=== PATIENT | male | born 1985 | race Caucasian/White ===

== ENCOUNTER 2023-02-08 16:14 | Inpatient (IN) | payer MEDICARE, OTHER ==
[~2023-02-08] VITALS: Ht 175.3 cm; Wt 75.3 kg
[2023-02-08 16:48] LABS: Basophils # (auto) 0.1 10 ^3/uL (0-0.2); Eosinophils # (auto) 0.7 10 ^3/uL (0-0.8); Eosinophils % (auto) 5.2 % (0.0-7.0); Hemoglobin 12.3 g/dL (13.5-17.5); Lymphocytes # (auto) 1.4 10 ^3/uL (0.4-5.4); Neutrophils # (auto) 10.7 10 ^3/uL (1.6-8.6); White Blood Cell 13.8 10^3/uL (4.4-10.8)
[2023-02-08 16:49] LABS: Basophils % (auto) 0.9 % (0.0-2.0); Hematocrit 38.6 % (41.0-53.0); Lymphocytes % (auto) 9.9 % (10.0-50.0); Mean Corpuscular Hemoglobin 24.6 pg (28.0-32.0); Monocytes # (auto) 0.9 10 ^3/uL (0-1.3); Monocytes % (auto) 6.8 % (0.0-12.0); Neutrophils % (auto) 77.2 % (37.0-80.0); Nucleated Red Blood Cells % 0.7 %; Red Blood Cells 5.01 10^6/uL (4.5-5.90)
[2023-02-08 16:58] LABS: Albumin 3.1 g/dL (3.4-5.0); BUN/Creatinine Ratio 7.4 (10.0-20.0); Calcium 6.4 mg/dL (8.5-10.1); Magnesium 1.6 mg/dL (1.6-2.6)
[2023-02-08 17:01] LABS: Bilirubin, Total 0.2 mg/dL (0.2-1.0); Total Protein 6.2 g/dL (6.4-8.2)
[2023-02-08 17:28] LABS: Potassium 2.1 mmol/L (3.5-5.1)
[2023-02-08] MEDS ORDERED: SODIUM BICARBONATE 8.4 % INJ 50ML VIAL IV ONE (18:15)
[2023-02-08] MEDS ORDERED: POTASSIUM EFFERVESENT TAB 25 MEQ PO ONE (18:15)
[2023-02-08] MEDS ORDERED: HYDROcodone-ACET 5/325MG TAB PO PRN (22:15)
[2023-02-08] MEDS ORDERED: MORPHINE SULFATE INJ 2 MG/ml SYRG IV PRN ×2 (22:15)
[2023-02-08] MEDS ORDERED: NITROGLYCERIN 0.4 MG SL TAB SL PRN (22:15)
[2023-02-08] MEDS ORDERED: ALBUMIN 25% 100 ML IV ONE (23:00)
[2023-02-08] MEDS ORDERED: MAGNESIUM SULFATE 1GM/100ML 100 ML IV ONE (23:00)
[2023-02-08 23:50] LABS: Cholesterol 98 mg/dL (< 200); HDL Cholesterol 8 mg/dL (40-59); LDL Cholesterol 57 mg/dL (< 100); Triglycerides 138 mg/dL (< 150)
[2023-02-08 23:52] LABS: Amphetamine Screen, Urine NEGATIVE (NEGATIVE); Barbiturate Scree,Urine NEGATIVE (NEGATIVE); Benzodiazephine Screen, Urine NEGATIVE (NEGATIVE); Cannabinoid Screen, Urine NEGATIVE (NEGATIVE); Cocaine Screen, Urine NEGATIVE (NEGATIVE); Opiate Scree,Urine NEGATIVE (NEGATIVE); Phencyclidine Screen, Urine NEGATIVE (NEGATIVE)
[2023-02-09] MEDS: POTASSIUM CHL 20MEQ/100ML 100 ML IV SCH ×3 (00:13→04:20)
[2023-02-09 00:20] LABS: Urine Bacteria FEW /hpf (None Seen); Urine Blood 2+ /uL (Negative); Urine Specific Gravity 1.008 (1.001-1.035); Urine WBC 4 /hpf (0 - 3)
[2023-02-09] MEDS ORDERED: SODI650T PO ×2 (00:35→12:52)
[2023-02-09] MEDS ORDERED: POTASSIUM CHL 20MEQ/100ML 100 ML IV SCH (00:45)
[2023-02-09 06:46] LABS: Albumin 2.8 g/dL (3.4-5.0); BUN/Creatinine Ratio 7.7 (10.0-20.0); Bilirubin, Total 0.4 mg/dL (0.2-1.0); Calcium 6.3 mg/dL (8.5-10.1); Total Protein 6.1 g/dL (6.4-8.2)
[2023-02-09 06:49] LABS: Eosinophils # (auto) 0 10 ^3/uL (0-0.8); Eosinophils % (auto) 0.2 % (0.0-7.0); Mean Corpuscular Volume 77.1 fL (80.0-100.0); Red Cell Distribution Width 19.7 % (11.8-14.3)
[2023-02-09 06:51] LABS: Basophils # (auto) 0.1 10 ^3/uL (0-0.2); Basophils % (auto) 0.3 % (0.0-2.0); Hematocrit 33.6 % (41.0-53.0); Hemoglobin 10.8 g/dL (13.5-17.5); Mean Corpuscular Hemoglobin 24.8 pg (28.0-32.0); Mean Corpuscular Hgb Conc. 32.1 g/dL (32.0-36.0); Monocytes # (auto) 0.9 10 ^3/uL (0-1.3); Monocytes % (auto) 5.4 % (0.0-12.0); Neutrophils # (auto) 14.4 10 ^3/uL (1.6-8.6); Neutrophils % (auto) 88.1 % (37.0-80.0); Nucleated Red Blood Cells % 0.3 %; Red Blood Cells 4.35 10^6/uL (4.5-5.90); White Blood Cell 16.4 10^3/uL (4.4-10.8)
[2023-02-09 06:52] LABS: Potassium 2.1 mmol/L (3.5-5.1)
[2023-02-09] MEDS ORDERED: POTASSIUM CHLORIDE 40 MEQ, LIDOCAINE 1% (LOCAL ANESTH.) 4 ML in SODIUM CHL 0.9% 250 ML IV ONE (07:15)
[2023-02-09] MEDS ORDERED: SODIUM BICARBONATE 650 MG TAB PO SCH ×3 (07:15→18:00)
[2023-02-09] MEDS ORDERED: POTASSIUM CHL 20 Meq TABLET PO ONE ×2 (07:15→10:00)
[2023-02-09] MEDS ORDERED: LORazepam 2MG/ML-1ML VIAL IV PRN (09:15)
[2023-02-09] MEDS: PANTOPRAZOLE 40 MG/10 ML VIAL INJ IV SCH (11:07)
[2023-02-09] MEDS: SODIUM BICARBONATE 50ML VIAL 150 ML in D5W 5% 1,000 ML IV SCH (11:28)
[2023-02-09 12:00] LABS: BUN/Creatinine Ratio 7.6 (10.0-20.0); Calcium 6.3 mg/dL (8.5-10.1); Potassium 3.6 mmol/L (3.5-5.1)
[2023-02-09] MEDS ORDERED: POTA10TA51 PO (12:52)
[2023-02-09] MEDS ORDERED: MESA1.2T PO (12:52)
[2023-02-09] MEDS ORDERED: SERT25TA84 PO (12:52)
[2023-02-09] MEDS ORDERED: SODIUM CHLORIDE 0.9% 1,000 ML IV ONE (13:00)
[2023-02-09 14:49] LABS: BUN/Creatinine Ratio 7.7 (10.0-20.0); Potassium 3.8 mmol/L (3.5-5.1)
[2023-02-09 14:50] LABS: Calcium 6.1 mg/dL (8.5-10.1); Phosphorus 2.7 mg/dL (2.5-4.90); Uric Acid 9.5 mg/dL (3.5-7.2)
[2023-02-09] MEDS: ACETAMINOPHEN 325 MG TAB PO PRN (16:45)
[2023-02-09 17:26] VITALS: BP 109/73
[2023-02-09 17:28] VITALS: BP 94/68
[2023-02-09 18:25] LABS: BUN/Creatinine Ratio 8.1 (10.0-20.0); Calcium 6.2 mg/dL (8.5-10.1); Potassium 3.5 mmol/L (3.5-5.1)
[2023-02-09 20:00] VITALS: BP 89/56
[2023-02-09] MEDS: metroNIDAZOLE 500MG/100ML 100 ML IV SCH (22:16)
[2023-02-09 23:16] LABS: BUN/Creatinine Ratio 7.6 (10.0-20.0); Calcium 6.4 mg/dL (8.5-10.1); Potassium 3.3 mmol/L (3.5-5.1)
[2023-02-10] VITALS (10 sets, daily range): BP systolic 83–111; BP diastolic 48–72
[2023-02-10] MEDS: SODIUM BICARBONATE 50ML VIAL 150 ML in D5W 5% 1,000 ML IV SCH ×3 (00:50→20:30)
[2023-02-10] MEDS: metroNIDAZOLE 500MG/100ML 100 ML IV SCH ×3 (06:22→22:00)
[2023-02-10 07:17] LABS: BUN/Creatinine Ratio 7.4 (10.0-20.0); Calcium 6.7 mg/dL (8.5-10.1); Potassium 3.2 mmol/L (3.5-5.1)
[2023-02-10] MEDS ORDERED: POTASSIUM EFFERVESENT TAB 25 MEQ PO ONE ×2 (08:00→19:15)
[2023-02-10 08:32] LABS: Basophils # (auto) 0 10 ^3/uL (0-0.2); Eosinophils # (auto) 0.3 10 ^3/uL (0-0.8); Eosinophils % (auto) 3.8 % (0.0-7.0); Hemoglobin 9.7 g/dL (13.5-17.5); Lymphocytes # (auto) 1.6 10 ^3/uL (0.4-5.4); Monocytes # (auto) 0.9 10 ^3/uL (0-1.3); Nucleated Red Blood Cells % 0.3 %
[2023-02-10 08:34] LABS: Basophils % (auto) 0.5 % (0.0-2.0); Hematocrit 30.3 % (41.0-53.0); Mean Corpuscular Hemoglobin 24.4 pg (28.0-32.0); Mean Corpuscular Hgb Conc. 32.2 g/dL (32.0-36.0); Monocytes % (auto) 10.3 % (0.0-12.0); Neutrophils # (auto) 6.1 10 ^3/uL (1.6-8.6); Neutrophils % (auto) 67.4 % (37.0-80.0); Red Blood Cells 3.99 10^6/uL (4.5-5.90); Red Cell Distribution Width 19.7 % (11.8-14.3); White Blood Cell 9.1 10^3/uL (4.4-10.8)
[2023-02-10] MEDS: cefTRIAXone 1GM/50ML D5W 50 ML IV SCH (08:41)
[2023-02-10] MEDS: ACETAMINOPHEN 325 MG TAB PO PRN ×2 (09:02→14:36)
[2023-02-10] MEDS: PANTOPRAZOLE 40 MG/10 ML VIAL INJ IV SCH (09:37)
[2023-02-10] MEDS: SERTRALINE HCL 50 MG TAB PO SCH (09:37)
[2023-02-10] MEDS: ONDANSETRON HCL 4 MG/2 ML VIAL IV PRN (13:11)
[2023-02-10 18:44] LABS: BUN/Creatinine Ratio 8.2 (10.0-20.0); Calcium 6.1 mg/dL (8.5-10.1)
[2023-02-10 18:47] LABS: Potassium 2.8 mmol/L (3.5-5.1)
[2023-02-10] MEDS: POTASSIUM CHL 20MEQ/100ML 100 ML IV SCH (21:15)
[2023-02-10] MEDS: methylPREDNISolone SOD SUCC 40 MG/ML VL IV SCH (22:00)
[2023-02-11] MEDS: POTASSIUM CHL 20MEQ/100ML 100 ML IV SCH (00:37)
[2023-02-11] MEDS: SODIUM BICARBONATE 50ML VIAL 150 ML in D5W 5% 1,000 ML IV SCH ×2 (00:58→19:30)
[2023-02-11 05:00] VITALS: BP 98/63
[2023-02-11] MEDS: metroNIDAZOLE 500MG/100ML 100 ML IV SCH ×3 (05:55→21:22)
[2023-02-11] MEDS: ONDANSETRON HCL 4 MG/2 ML VIAL IV PRN (06:48)
[2023-02-11 07:47] LABS: Anion Gap 5 (5-15); Blood Urea Nitrogen 45 mg/dL (7-18); Calcium 6.2 mg/dL (8.5-10.1); Carbon Dioxide 17 mmol/L (21-32); Chloride 120 mmol/L (98-107); Glucose 103 mg/dL (74-106); Potassium 3.8 mmol/L (3.5-5.1); Sodium 142 mmol/L (136-145)
[2023-02-11 07:48] LABS: Alanine Aminotransferase 14 U/L (16-61); Aspartate Aminotransferase 50 U/L (15-37); BUN/Creatinine Ratio 7.3 (10.0-20.0); GFR African American 13 mL/min; GFR Non-African American 11 mL/min
[2023-02-11 07:51] LABS: Alkaline Phosphatase 81 U/L (45-117); Bilirubin, Total 0.5 mg/dL (0.2-1.0); Total Protein 5.4 g/dL (6.4-8.2)
[2023-02-11] MEDS: PANTOPRAZOLE 40 MG/10 ML VIAL INJ IV SCH (08:49)
[2023-02-11] MEDS: methylPREDNISolone SOD SUCC 40 MG/ML VL IV SCH ×2 (08:51→22:00)
[2023-02-11] MEDS: SERTRALINE HCL 50 MG TAB PO SCH (08:52)
[2023-02-11] MEDS: cefTRIAXone 1GM/50ML D5W 50 ML IV SCH (08:52)
[2023-02-11 09:00] VITALS: BP 119/74
[2023-02-11 09:05] LABS: BUN/Creatinine Ratio 7.5 (10.0-20.0)
[2023-02-11 09:23] LABS: Potassium 3.2 mmol/L (3.5-5.1)
[2023-02-11] MEDS ORDERED: DexAMETHasone SOD PHOS 10MG/1ML VIAL INJ IV SCH (10:00)
[2023-02-11] MEDS ORDERED: POTASSIUM CHL 20 Meq TABLET PO ONE (12:00)
[2023-02-11] MEDS ORDERED: CALCIUM GLUC 1,000mg/50ml-NS 50 ML IV ONE (12:00)
[2023-02-11 13:00] VITALS: BP 97/67
[2023-02-11 16:44] VITALS: BP 110/68
[2023-02-11] MEDS: ACETAMINOPHEN 325 MG TAB PO PRN (20:31)
[2023-02-11 22:00] VITALS: BP 106/61
[2023-02-12 05:00] VITALS: BP 100/60
[2023-02-12] MEDS: metroNIDAZOLE 500MG/100ML 100 ML IV SCH ×3 (05:07→20:54)
[2023-02-12] MEDS: SODIUM BICARBONATE 50ML VIAL 150 ML in D5W 5% 1,000 ML IV SCH (05:47)
[2023-02-12 06:35] LABS: Basophils # (auto) 0 10 ^3/uL (0-0.2); Basophils % (auto) 0.1 % (0.0-2.0); Eosinophils # (auto) 0 10 ^3/uL (0-0.8); Hematocrit 27.4 % (41.0-53.0); Hemoglobin 9.3 g/dL (13.5-17.5); Lymphocytes # (auto) 1.1 10 ^3/uL (0.4-5.4); Lymphocytes % (auto) 11.4 % (10.0-50.0); Mean Corpuscular Hemoglobin 25.1 pg (28.0-32.0); Mean Corpuscular Hgb Conc. 33.9 g/dL (32.0-36.0); Mean Corpuscular Volume 74.2 fL (80.0-100.0); Monocytes # (auto) 0.7 10 ^3/uL (0-1.3); Monocytes % (auto) 7.2 % (0.0-12.0); Neutrophils # (auto) 7.7 10 ^3/uL (1.6-8.6); Neutrophils % (auto) 81.3 % (37.0-80.0); Nucleated Red Blood Cells % 0.3 %; Red Blood Cells 3.69 10^6/uL (4.5-5.90); Red Cell Distribution Width 19.8 % (11.8-14.3); White Blood Cell 9.5 10^3/uL (4.4-10.8)
[2023-02-12 07:03] LABS: Calcium 6.1 mg/dL (8.5-10.1)
[2023-02-12 07:28] LABS: Potassium 2.4 mmol/L (3.5-5.1)
[2023-02-12] MEDS ORDERED: POTASSIUM EFFERVESENT TAB 25 MEQ PO ONE ×2 (08:00→08:30)
[2023-02-12] MEDS ORDERED: MAGNESIUM SULFATE 1GM/100ML 100 ML IV ONE (08:00)
[2023-02-12 09:00] VITALS: BP 100/61
[2023-02-12] MEDS: MESALAMINE 400mg Delayed Release Cap PO SCH ×2 (09:30→20:53)
[2023-02-12] MEDS: SERTRALINE HCL 50 MG TAB PO SCH (09:30)
[2023-02-12] MEDS: PANTOPRAZOLE 40 MG/10 ML VIAL INJ IV SCH (09:31)
[2023-02-12] MEDS: cefTRIAXone 1GM/50ML D5W 50 ML IV SCH (09:31)
[2023-02-12] MEDS ORDERED: methylPREDNISolone SOD SUCC 40 MG/ML VL IV SCH (10:00)
[2023-02-12] MEDS: predniSONE 20 MG TAB PO SCH (12:13)
[2023-02-12 13:00] VITALS: BP 108/63
[2023-02-12 14:23] LABS: Potassium 2.5 mmol/L (3.5-5.1)
[2023-02-12] MEDS ORDERED: POTASSIUM CHL 20 Meq TABLET PO ONE (15:15)
[2023-02-12 17:00] VITALS: BP 106/59
[2023-02-12 22:00] VITALS: BP 102/58
[2023-02-13 05:00] VITALS: BP 107/66
[2023-02-13] MEDS: metroNIDAZOLE 500MG/100ML 100 ML IV SCH ×2 (05:44→14:00)
[2023-02-13 06:46] LABS: BUN/Creatinine Ratio 6.8 (10.0-20.0); Calcium 7.4 mg/dL (8.5-10.1)
[2023-02-13 07:51] LABS: Potassium 2.9 mmol/L (3.5-5.1)
[2023-02-13 09:00] VITALS: BP 108/57
[2023-02-13] MEDS ORDERED: POTASSIUM EFFERVESENT TAB 25 MEQ PO ONE ×2 (09:30→13:00)
[2023-02-13] MEDS ORDERED: POTASSIUM CHLORIDE 20 MEQ, LIDOCAINE 1% (LOCAL ANESTH.) 2 ML in SODIUM CHL 0.9% 100 ML IV ONE (09:30)
[2023-02-13] MEDS: SERTRALINE HCL 50 MG TAB PO SCH (09:52)
[2023-02-13] MEDS: MESALAMINE 400mg Delayed Release Cap PO SCH (09:52)
[2023-02-13] MEDS: PANTOPRAZOLE 40 MG/10 ML VIAL INJ IV SCH (09:52)
[2023-02-13] MEDS: predniSONE 20 MG TAB PO SCH (09:52)
[2023-02-13] MEDS: cefTRIAXone 1GM/50ML D5W 50 ML IV SCH (09:57)
[2023-02-13 13:00] VITALS: BP 113/71
[2023-02-13] MEDS ORDERED: METH4PAK PO (15:39)
[2023-02-13] MEDS ORDERED: METR500T PO (15:39)
[2023-02-13] MEDS ORDERED: LEVO500T31 PO (15:39)
[2023-02-13 17:00] VITALS: BP 120/72
[2023-02-13 17:31] VITALS: BP 120/72
== END 2023-02-13 19:50 | disposition home or self-care (01) | DRG 871 ==
LOC: ER 16:14 → EDBD 16:14 → TELE 22:49 → DOU IN ICU 02-09 17:02 → TELE-WESTW 02-10 17:19
PROVIDERS: ADMIT Registered Nurse; ATTEND Nurse Practitioner Acute Care
PROC: 05H933Z Insertion of Infusion Device into Right Brachial Vein, Percutaneous Approach (ICD-10-PCS; principal; 2023-02-09)
PROC: B54MZZA Ultrasonography of Right Upper Extremity Veins, Guidance (ICD-10-PCS; 2023-02-09)
DX: A41.9 Sepsis, unspecified organism (principal); N17.0 Acute kidney failure with tubular necrosis; E87.21 Acute metabolic acidosis; N18.5 Chronic kidney disease, stage 5; K51.90 Ulcerative colitis, unspecified, without complications; E87.6 Hypokalemia; K21.9 Gastro-esophageal reflux disease without esophagitis; G72.9 Myopathy, unspecified; W18.39XA Other fall on same level, initial encounter; Y93.89 Activity, other specified; Y92.098 Other place in other non-institutional residence as the place of occurrence of the external cause; Z76.82 Awaiting organ transplant status; Y99.8 Other external cause status; K52.9 Noninfective gastroenteritis and colitis, unspecified
CPT/HCPCS: 36415; 36600; 70450; 70551; 71045; 74176; 76775; 80048; 80053; 80061; 80307; 81001; 82550; 82805; 83036; 83605; 83735; 83880; 84100; 84132; 84443; 84484; 84550; 85025; 85048; 87045; 87081; 87427; 87493; 93005; 96365; 96366; 96367; 96375; 97110; 97116; 97163; 97530; C9113; G0378; J0696; J1100; J2001; J2405; J3480; J3490

== ENCOUNTER 2025-08-20 08:24 | Inpatient (IN) | payer MEDICARE, OTHER ==
[~2025-08-20] VITALS: Ht 175.3 cm; Wt 98.4 kg
[~2025-08-20 08:24] MED LIST: LEVO500T31 PO; MESA1.2T PO; METH4PAK PO; METR500T PO; POTA-36 PO; SERT25TA84 PO; SODI650T PO
--- NOTE | 2025-08-20 08:58 | ED.PDOC ---
History of Present Illness HPI Comments Patient is a 40-year-old male with past medical history of ESRD, ulcerative colitis, recurrent UTIs, bladder exstrophy, who was sent from the dialysis center to get a tunneled catheter placement. According to the patient and mother at bedside, patient started dialysis about 6 months ago and since then he has had 4 failed fistulas/grafts. Patient initially had a tunneled dialysis catheter placed on the right chest approximately 5 months ago at [facility] which was recently taken out, currently patient is on a Monday schedule with the [facility] and is scheduled to undergo dialysis tomorrow before 6:00 p.m.. Review of systems is largely unremarkable. Chief Complaint: Upper Extremity Time Seen by MD: 08:40 Primary Care Provider: WILMAR Allergies: Coded Allergies: NO KNOWN ALLERGIES (Unverified , 02/08/23) Home Meds Active Scripts Methylprednisolone (Medrol Dosepak) 4 Mg Michael, 4 MG PO UD, #21 TAB UAD Prov:CECILY BENNETT WORK MANAGER 02/13/23 Metronidazole (Flagyl) 500 Mg Tab, 500 MG PO Q8HR for 7 Days, #21 TAB Prov:CECILY BENNETT WORK MANAGER 02/13/23 Levofloxacin (Levaquin) 500 Mg Tab, 500 MG PO DAILY for 7 Days, #7 TAB Prov:CECILY BENNETT WORK MANAGER 02/13/23 Reported Medications Potassium Chloride (POTASSIUM CHLORIDE CR) 10 Meq Tb, 30 MEQ PO TID, TAB 02/09/23 Mesalamine (Lialda) 1.2 Gm Tab, 2 TAB PO DAILY, #180 TAB 3 Refills 02/09/23 Sertraline Hcl (Zoloft) 25 Mg Tab, 1 TAB PO DAILY, #30 TAB 2 Refills 02/09/23 Sodium Bicarbonate (Sodium Bicarbonate) 650 Mg Tab, 4 TAB PO QID 02/09/23 Mode of Arrival: Ambulatory Past Medical History PAST MEDICAL HISTORY: CKF, GERD Past Medical History (Contd): ESRD, ulcerative colitis, recurrent UTIs, bladder exstrophy Surgical History: Denies all surgeries Surgical History (Cont'd) Multiple bowel and bladder surgeries Family History Family History: Reviewed,noncontributory to illness Social History Smoker: Non-Smoker Alcohol: Denies ETOH Use Drugs: Denies Drug Use Lives In: Home Constitutional: denies: chills, diaphoresis, fatigue, fever, malaise, sweats, weakness, others EENTM: denies: blurred vision, double vision, ear bleeding, ear discharge, ear drainage, ear pain, ear ringing, eye pain, eye redness, hearing loss, mouth pain, mouth swelling, nasal discharge, nose bleeding, nose congestion, nose pain, photophobia, tearing, throat pain, throat swelling, voice changes, others Respiratory: denies: cough, hemoptysis, orthopnea, SOB at rest, shortness of breath, SOB with excertion, stridor, wheezing, others Cardiovascular: denies: chest pain, dizzy spells, diaphoresis, Dyspnea on exertion, edema, irregular heart beat, left arm pain, lightheadedness, palpitations, PND, syncope, others Gastrointestinal: denies: abdomen distended, abdominal pain, blood streaked bowels, constipated, diarrhea, dysphagia, difficulty swallowing, hematemesis, melena, nausea, poor appetite, poor fluid intake, rectal bleeding, rectal pain, vomiting, others Genitourinary: denies: burning, dysuria, flank pain, frequency, hematuria, incontinence, penile discharge, penile sore, pain, testicle pain, testicle swelling, urgency, others Neurological: denies: dizziness, fainting, headache, left sided numbness, left sided weakness, numbness, paresthesia, pre-existing deficit, right sided numbness, right sided weakness, seizure, speech problems, tingling, tremors, weakness, others Musculoskeletal: denies: back pain, gout, joint pain, joint swelling, muscle pain, muscle stiffness, neck pain, others Integumetry: denies: bruises, change in color, change in hair/nails, dryness, laceration, lesions, lumps, rash, wounds, others Allergic/Immunocompromised: denies: Difficulty Healing, Frequent Infections, Hives, Itching, others Hematologic/Lymphatic: denies: anemia, blood clots, easy bleeding, easy bruising, swollen glands, others Endocrine: denies: excessive hunger, excessive sweating, excessive thirst, excessive urination, flushing, intolerance to cold, intolerance to heat, unexplained weight gain, unexplained weight loss, others Psychiatric: denies: anxiety, bipolar disorder, depression, hopeless, panic disorder, schizophrenia, sleepless, suicidal, others Physical Exam General Appearance: No Apparent Distress, Normal HEENT: Normal ENT Inspection, PERRL/EOMI Neck: Full Range of Motion, Non-Tender, Normal Inspection Respiratory: Chest Non-Tender, No Accessory Muscle Use, No Respiratory Distress, Normal Breath Sounds Cardiovascular: Regular Rate/Rhythm Breast Exam: Deferred Gastrointestinal: Non Tender, No Pulsatile Mass, Normal Bowel Sounds, Other (Bladder stoma noted on right anterior abdominal wall) Genitalia: Deferred Pelvic: Deferred Rectal: Rectal Exam not done Extremities: No calf tenderness, Normal capillary refill, Normal inspection, Normal range of motion, No pedal edema, Other (For history was noted in the medial aspect of left upper extremity, no palpable bruit) Neurologic: Alert, No Motor Deficits, Normal Mood, No Sensory Deficits Cerebellar Function: NOT DONE Reflexes: NOT DONE Skin: Dry, None, Normal Color Peripheral Pulses: 2+ dorsalis pedis (R), 2+ dorsalis pedis (L) Lymphatic: NOT DONE Was a procedure done? Was a procedure done?: No Differential Dx Considerations may include: ESRD requiring tunneled catheter placement Malfunctioning fistula Poor vascular anatomy Recently failed AV graft X-Ray, Labs, Meds, VS Vital Signs Date Time Temp Pulse Resp B/P (MAP) Pulse Ox O2 Delivery O2 Flow Rate FiO2 08/20/25 08:28 97.9 90 16 156/96 97 97.9 Lab Test 08/20/25 09:15 Range/Units White Blood Count 7.5 4.4-10.8 10^3/uL Red Blood Count 3.27 L 4.5-5.90 10^6/uL Hemoglobin 10.8 L 13.5-17.5 g/dL Hematocrit 31.8 L 41.0-53.0 % Mean Corpuscular Volume 97.3 80.0-100.0 fL Mean Corpuscular Hemoglobin 33.0 H 28.0-32.0 pg Mean Corpuscular Hemoglobin Concent 33.9 32.0-36.0 g/dL Red Cell Distribution Width 15.1 H 11.8-14.3 % Platelet Count 184 140-450 10^3/uL Mean Platelet Volume 6.7 L 6.9-10.8 fL Neutrophils (%) (Auto) 59.6 37.0-80.0 % Lymphocytes (%) (Auto) 30.5 10.0-50.0 % Monocytes (%) (Auto) 3.9 0.0-12.0 % Eosinophils (%) (Auto) 5.3 0.0-7.0 % Basophils (%) (Auto) 0.7 0.0-2.0 % Neutrophils # (Auto) 4.5 1.6-8.6 10 ^3/uL Lymphocytes # (Auto) 2.3 0.4-5.4 10 ^3/uL Monocytes # (Auto) 0.3 0-1.3 10 ^3/uL Eosinophils # (Auto) 0.4 0-0.8 10 ^3/uL Basophils # (Auto) 0 0-0.2 10 ^3/uL Nucleated Red Blood Cells 0.1 % Prothrombin Time Pending Prothrombin Time INR Pending Activated Partial Thromboplast Time Pending Sodium Level Pending Potassium Level Pending Chloride Level Pending Carbon Dioxide Level Pending Anion Gap Pending Blood Urea Nitrogen Pending Creatinine Pending Glomerular Filtration Rate Calc Pending BUN/Creatinine Ratio Pending Serum Glucose Pending Calcium Level Pending Time of 1ST Reevaluation: 09:30 Reevaluation 1ST: Unchanged Patient Education/Counseling: Diagnosis, Treatment, Prognosis, Need For Follow Up Family Education/Counseling: Diagnosis, Treatment, Prognosis, Need For Follow Up SEPSIS Sepsis Screen Date sepsis recognized/suspect: Aug 20, 2025 Time Sepsis recognized/suspect: 829 Recent Procedure: No On Antibiotic Therapy: No Respiratory Rate >20: No Heart Rate >90: No Temp<36 C (96.8 F) or >38.3 C: No SBP <90 or MAP <65 mmHG: No New Acute Mental Status Change: No Is the patient on CPAP, BIPAP,: No Physician Orders Basic Metabolic Panel (08/20/25 08:58) PTPTT (08/20/25 08:58) Urinalysis (08/20/25 08:58) * Radiologist Consult (08/20/25 08:58) Vital Signs Date Time Temp Pulse Resp B/P (MAP) Pulse Ox O2 Delivery O2 Flow Rate FiO2 08/20/25 08:28 97.9 90 16 156/96 97 97.9 Laboratory Tests Test 08/20/25 09:15 White Blood Count 7.5 10^3/uL (4.4-10.8) Departure 1 Departure Time of Disposition: 09:35 Impression: Primary Impression: ESRD (end stage renal disease) Additional Impressions: Maturation failure of surgically constructed arteriovenous fistula Ulcerative colitis Qualified Codes: K51.919 - Ulcerative colitis, unspecified with unspecified complications Disposition: 09 ADMITTED INPATIENT Condition: Guarded Critical Care Note Critical Care Time?: No Stability Stability form required: COMFORT [place] RESIDENT Aug 20, 2025 08:57
[2025-08-20 09:29] LABS: Hematocrit 31.8 % (41.0-53.0); Hemoglobin 10.8 g/dL (13.5-17.5); Mean Corpuscular Hemoglobin 33.0 pg (28.0-32.0); Mean Corpuscular Volume 97.3 fL (80.0-100.0); Nucleated Red Blood Cells % 0.1 %
[2025-08-20 09:36] LABS: Chloride 102 mmol/L (98-107); Potassium 4.4 mmol/L (3.5-5.1); Sodium 140 mmol/L (136-145)
[2025-08-20 09:37] LABS: Anion Gap 14 (5-15); Carbon Dioxide 24 mmol/L (20-31)
[2025-08-20 09:38] LABS: Calcium 10.3 mg/dL (8.7-10.4)
[2025-08-20 09:43] LABS: BUN/Creatinine Ratio 5.4 (10.0-20.0)
[2025-08-20 09:45] LABS: Blood Urea Nitrogen 62 mg/dL (9-23); Glucose 110 mg/dL (74-106); INR 0.92 (0.9-1.15); Partial Thromboplastin Time 27.3 SEC (24.5-34.5); Prothrombin Time 9.8 sec (9.3-11.8)
[2025-08-20] MEDS ORDERED: ACETAMINOPHEN 325 MG TAB PO PRN (09:45)
[2025-08-20] MEDS ORDERED: MORPHINE SULFATE INJ 2 MG/ml SYRG IV PRN (09:45)
--- NOTE | 2025-08-20 09:52 | DVHHPRES ---
History of Present Illness Resident Creating Document: JULIO MAHAN History of Present Illness Herberth Jenkins is a 40-year-old male patient who presents to the ED to obtain at tunneled hemodialysis catheter. Patient's last hemodialysis session was on Monday08/16/2025 where his AV fistula was functioning (this was the sixth time it was used), hemodialysis catheter was removed on Monday08/18/2025, and in his hemodialysis session of 08/19/2025 his AV fistula was non functioning. Patient has been on dialysis for the past five months, with four failed AV fistulas on warfarin ( 2mg p.o. daily). Denies any associated symptoms. Past medical history: Hypertension, dyslipidemia, end-stage renal disease secondary to bladder exstrophy (he has been diagnosed with chronic kidney disease since the age of 20), ulcerative colitis, depression, schizophrenia, developmental delay, multiple UTIs Surgical history: 4 AV fistula surgeries (two placement and two grafts), bladder stoma, tunneled hemodialysis catheter placement five months ago Family history: Grandmother and brother had breast cancer, grandfather had lung cancer Social history: Lives in [place] with family (next of kin is mother). Denies current tobacco, alcohol and other drug abuse Allergies: Ceftriaxone Home medication: Humira two injections monthly, warfarin2 mg p.o. daily, quetiapine 50 mg p.o. daily, amoxicillin PRN, atorvastatin, vitamin complex, folic acid, omeprazole, calcium, calcitriol, sertraline, vitamin-D Patient seen and examined at bedside. Currently has no new complaints. Admitted for further management. Past Medical History Per HPI Past Surgical History Per HPI Family History Per HPI Past Social History Per HPI Review of Systems Review of Systems Per HPI Allergies: Coded Allergies: NO KNOWN ALLERGIES (Unverified , 02/08/23) Medications Current Medications Medications Dose Ordered Sig/Tiffany Route Start Time Stop Time Status Last Admin Dose Admin Acetaminophen 325 mg Q4HP PRN PO 08/20/25 09:45 UNV Morphine Sulfate 2 mg Q4HPRN PRN IV 08/20/25 09:45 UNV Exam Vital Signs Vital Signs Date Time Temp Pulse Resp B/P (MAP) Pulse Ox O2 Delivery O2 Flow Rate FiO2 08/20/25 09:49 98.2 80 17 124/97 (106) 96 98.2 08/20/25 09:49 Room Air Exam Patient lying in bed, in no acute distress General: Lucid, afebrile, mucosae are moist Cardiovascular: Normal S1 and S2. No murmurs, gallops or rubs Respiratory: Normal ventilation mechanics. Clear lung sounds on auscultation Abdomen: Soft, nontender, no organomegaly, normal bowel sounds : Viable bladder stoma, no signs of infection. MSK/skin: Mobilizes 4 limbs. Skin is dry and warm. Left arm AV fistula does not thrill, no fremitus auscultated. Presents surgical side of tunneled hemodialysis catheter in right subclavian region, no purulent discharge and no signs of erythema. Neurological: Oriented in 3 spheres. No motor no sensitive deficits. Pupils are isocoric and reactive Labs/Xrays Labs Test 08/20/25 09:15 Range/Units White Blood Count 7.5 4.4-10.8 10^3/uL Red Blood Count 3.27 L 4.5-5.90 10^6/uL Hemoglobin 10.8 L 13.5-17.5 g/dL Hematocrit 31.8 L 41.0-53.0 % Mean Corpuscular Volume 97.3 80.0-100.0 fL Mean Corpuscular Hemoglobin 33.0 H 28.0-32.0 pg Mean Corpuscular Hemoglobin Concent 33.9 32.0-36.0 g/dL Red Cell Distribution Width 15.1 H 11.8-14.3 % Platelet Count 184 140-450 10^3/uL Mean Platelet Volume 6.7 L 6.9-10.8 fL Neutrophils (%) (Auto) 59.6 37.0-80.0 % Lymphocytes (%) (Auto) 30.5 10.0-50.0 % Monocytes (%) (Auto) 3.9 0.0-12.0 % Eosinophils (%) (Auto) 5.3 0.0-7.0 % Basophils (%) (Auto) 0.7 0.0-2.0 % Neutrophils # (Auto) 4.5 1.6-8.6 10 ^3/uL Lymphocytes # (Auto) 2.3 0.4-5.4 10 ^3/uL Monocytes # (Auto) 0.3 0-1.3 10 ^3/uL Eosinophils # (Auto) 0.4 0-0.8 10 ^3/uL Basophils # (Auto) 0 0-0.2 10 ^3/uL Nucleated Red Blood Cells 0.1 % Prothrombin Time 9.8 9.3-11.8 sec Prothrombin Time INR 0.92 0.9-1.15 Activated Partial Thromboplast Time 27.3 24.5-34.5 SEC Sodium Level 140 136-145 mmol/L Potassium Level 4.4 3.5-5.1 mmol/L Chloride Level 102 98-107 mmol/L Carbon Dioxide Level 24 20-31 mmol/L Anion Gap 14 5-15 Blood Urea Nitrogen 62 H 9-23 mg/dL Creatinine 11.54 *H 0.700-1.30 mg/dL Glomerular Filtration Rate Calc 5 >90 mL/min BUN/Creatinine Ratio 5.4 L 10.0-20.0 Serum Glucose 110 H 74-106 mg/dL Calcium Level 10.3 8.7-10.4 mg/dL SEPSIS Sepsis Screen Date sepsis recognized/suspect: Aug 20, 2025 Time Sepsis recognized/suspect: 829 Recent Procedure: No On Antibiotic Therapy: No Respiratory Rate >20: No Heart Rate >90: No Temp<36 C (96.8 F) or >38.3 C: No SBP <90 or MAP <65 mmHG: No New Acute Mental Status Change: No Is the patient on CPAP, BIPAP,: No Physician Orders Urinalysis (08/20/25 08:58) * Radiologist Consult (08/20/25 08:58) Admit (08/20/25 09:41) Code Status (08/20/25 09:41) Acetaminophen Tablet (Tylenol Tablet) (08/20/25 09:45) Complete Blood Count (08/21/25 04:00) Comprehensive Metabolic Panel (08/21/25 04:00) Npo (Nothing By Mouth) Diet (08/20/25 Lunch) Echo 2d Mode Cardiac Dop (08/20/25 09:41) Morphine Sulfate Injection (08/20/25 09:45) Oxygen By Nasal Cannula (08/20/25 09:41) Stat Ekg For Chest Pain (08/20/25 09:41) Notify Of Changes From Base (08/20/25 09:41) Hvac Sales Representative For 24 Hours (08/20/25 09:41) Emergency Dysrhythmia Protocol (08/20/25 09:41) Rhythm Strips Once Every Shift (08/20/25 09:41) Vitamin D, 25-Hydroxy (08/20/25 09:41) Vitamin B12 (08/20/25 09:41) Urinalysis (08/20/25 09:41) Thyroid Stimulating Hormone (08/20/25 09:41) Phosphorus (08/20/25 09:41) Magnesium (08/20/25 09:41) Lipid Panel (08/20/25 09:41) Hemoglobin A1c (08/20/25 09:41) Drug Screen (08/20/25 09:41) Vital Signs Date Time Temp Pulse Resp B/P (MAP) Pulse Ox O2 Delivery O2 Flow Rate FiO2 08/20/25 09:49 98.2 80 17 124/97 (106) 96 98.2 08/20/25 09:49 80 17 96 Room Air 08/20/25 08:28 97.9 90 16 156/96 97 97.9 Laboratory Tests Test 08/20/25 09:15 White Blood Count 7.5 10^3/uL (4.4-10.8) Assessment/Plan Assessment/Plan ASSESSMENT Uremia End-stage renal disease on hemodialysis Rule out AV fistula thrombosis Normocytic anemia Status post multiple failed AV fistula - on warfarin Dyslipidemia Hypertension Ulcerative colitis Depression Schizophrenia Developmental delay Multiple UTIs PLAN Admitted to [facility] Consulted interventional radiology for tunneled hemodialysis catheter placement Consulted nephrology. Ordered laboratory workup which ruled out acute infection. Has increase urea (BUN 62) and increased creatinine (11.54) Patient's INR is 0.92, he is not in anticoagulation range Ordered duplex of left upper extremity to evaluate thrombosis. Currently on heparin 5000 units subcutaneous b.i.d. Goals of care discussed with patient and family for over18 minutes: Full code status Discussed plan with Dr. Sanchez, patient, family and nurses: Patient admitted to [facility]. Consulted interventional radiology for placement of tunneled hemodialysis catheter. Consulted Nephrology for eventual hemodialysis session after placement of catheter to evaluate functionality. Patient has poor prognosis. Plan discussed with: Patient, Other (Nurses and mother) My Orders Orders - JULIO MAHAN RESIDENT Procedure Category Date Status Time Admit ADMIT 08/20/25 Transmitted 09:41 Code Status CODE 08/20/25 Transmitted 09:41 Acetaminophen Tablet PHA 08/20/25 Transmitted (Tylenol Tablet) 09:45 Complete Blood Count LAB 08/21/25 Verified 04:00 Comprehensive LAB 08/21/25 Verified Metabolic Panel 04:00 Npo (Nothing By DIET 08/20/25 Transmitted Mouth) Diet Lunch Echo 2d Mode Cardiac US 08/20/25 Logged DOP 09:41 Morphine Sulfate PHA 08/20/25 Transmitted Injection 09:45 Oxygen By Nasal RT 08/20/25 Transmitted Cannula 09:41 Stat Ekg For Chest ERIC 08/20/25 In Process Pain 09:41 Notify Md Of Changes [facility] 08/20/25 In Process From Base 09:41 Hvac Sales Representative For [facility] 08/20/25 In Process 24 Hours 09:41 Emergency Dysrhythmia [facility] 08/20/25 In Process Protocol 09:41 Rhythm Strips Once [facility] 08/20/25 In Process Every Shift 09:41 Vitamin D, 25-Hydroxy LAB 08/20/25 Logged 09:41 Vitamin B12 LAB 08/20/25 Logged 09:41 Urinalysis LAB 08/20/25 Logged 09:41 Thyroid Stimulating LAB 08/20/25 Logged Hormone 09:41 Phosphorus LAB 08/20/25 Logged 09:41 Magnesium LAB 08/20/25 Logged 09:41 Lipid Panel LAB 08/20/25 Logged 09:41 Hemoglobin A1c LAB 08/20/25 Logged 09:41 Drug Screen LAB 08/20/25 Logged 09:41 Date of Service: Aug 20, 2025 Billing Provider: FELY SANCHEZ MD Common Visit Codes: 61839-[id number] INP/OBS CARE (HIGH) Secondary Visit Codes: 58077-FBPZVPVF CARE PLAN 30 MINUTES JULIO MAHAN RESIDENT Aug 20, 2025 09:52
[2025-08-20 10:05] VITALS: PULSE 81; RESP 18; O2SAT 95
[2025-08-20 10:25] LABS: Magnesium 2.4 mg/dL (1.6-2.6); Triglycerides 185.0 mg/dL (< 150)
[2025-08-20 10:27] LABS: Cholesterol 118.0 mg/dL (< 200)
[2025-08-20 10:30] LABS: Urine Protein, UAD 2+ (Negative)
[2025-08-20 10:32] LABS: HDL Cholesterol 34.0 mg/dL (40-59)
--- NOTE | 2025-08-20 10:42 | DVH ---
XY CHEST XRAY 1 VIEW, HISTORY: SOB COMPARISON: XY CHEST PORTABLE on DOS: 02/08/23 XY CHEST PORTABLE on DOS: 02/08/23 TECHNICAL DATA: 1 view of the chest was obtained. FINDINGS: Lines and tubes: None Cardiomediastinal silhouette: normal Pulmonary vasculature: normal Lung expansion: normal Lung airspace: normal Lung interstitium: normal Pleura: normal Pneumothorax: no Bones: Unremarkable Other: no IMPRESSION: No acute intrathoracic abnormality.
[2025-08-20 10:43] LABS: Amphetamine Screen, Urine Neg (NEGATIVE); Barbiturate Scree,Urine Neg (NEGATIVE); Benzodiazephine Screen, Urine Neg (NEGATIVE); Cannabinoid Screen, Urine Neg (NEGATIVE); Cocaine Screen, Urine Neg (NEGATIVE); Opiate Scree,Urine Neg (NEGATIVE); Phencyclidine Screen, Urine Neg (NEGATIVE)
[2025-08-20] MEDS: CALCIUM CARB 500 MG CHEW TAB PO SCH (12:00)
--- NOTE | 2025-08-20 13:39 | DVH ---
Upper Extremity Venous Duplex Clinical History: Pain Comparison: None Technique: Duplex Doppler evaluation of the venous system of the LEFT lower neck and upper extremity including color Doppler and spectral/pulsed waveform analysis was performed. Findings: The internal jugular vein demonstrates appropriate compressibility and waveform variability. The subclavian vein is patent on color Doppler evaluation without intraluminal thrombus and demonstrates waveform variability. The visualized portion of the brachiocephalic vein is patent on color Doppler evaluation without intraluminal thrombus and demonstrates waveform variability. The axillary vein demonstrates appropriate compressibility and waveform variability. The brachial veins demonstrate appropriate compressibility and patency on Doppler evaluation. LEFT UPPER EXTREMITY GRAFT VISUALIZED WITH FLOW DEMONSTRATED. PRE ANASTOMOSIS THERE IS 73.2 CM/SEC BLOOD FLOW WITH 3-PHASE WAVEFORMS. Brachial artery left upper extremity at the fistulous graft shows 100.4 cm/sec blood flow with 3 phase waveforms. Brachial artery blood flow at the anastomosis left upper extremity shows 89.8 cm/sec blood flow with 3-phase waveforms. Imaging proximal to the anastomosis shows no blood flow. Imaging at mid anastomosis of the fistula demonstrates no blood flow. Distal to the joe stomosis of the graft in the brachial artery left upper extremity shows no blood flow. The basilic vein demonstrates appropriate compressibility and patency on Doppler evaluation. The cephalic vein demonstrates appropriate compressibility and patency on Doppler evaluation. Impression: 1. Suggest no flow in the graft left upper extremity. 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 2. Findings flow in the left subclavian vein proximal to the graft. Study marked sign and notify.
--- NOTE | 2025-08-20 15:19 | DVHINCON2 ---
Date of service: Aug 20, [address] Manley. Reason for Consultation End-stage renal disease History of Present Illness 40-year-old patient with significant history of end-stage renal disease, on hemodialysis TTS with last dialysis Monday and on Monday could not be done due to malfunction of the AV fistula. He also has significant history of recurrent UTI, ulcerative colitis, hypertension, hyperlipidemia, bladder exstrophy. Patient has had left upper arm AV graft placement and recent removal of the HD tunneled catheter. He suffered clotting of the AV graft despite being on warfarin. He denies chest pain orthopnea or PND. 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 (he has been diagnosed with chronic kidney disease since the age of 20), ulcerative colitis, depression, schizophrenia, developmental delay, multiple UTIs Past Surgical History Av graft creation Allergies: Coded Allergies: Ceftriaxone (Verified Allergy, Unknown, 08/20/25) Home Meds Active Scripts Methylprednisolone (Medrol Dosepak) 4 Mg Michael, 4 MG PO UD, #21 TAB UAD Prov:CECILY BENNETT [employer] ASSEMBLER 02/13/23 Metronidazole (Flagyl) 500 Mg Tab, 500 MG PO Q8HR for 7 Days, #21 TAB Prov:CECILY BENNETT [employer] ASSEMBLER 02/13/23 Levofloxacin (Levaquin) 500 Mg Tab, 500 MG PO DAILY for 7 Days, #7 TAB Prov:CECILY BENNETT [employer] ASSEMBLER 02/13/23 Reported Medications Potassium Chloride (POTASSIUM CHLORIDE CR) 10 Meq Tb, 30 MEQ PO TID, TAB 02/09/23 Mesalamine (Lialda) 1.2 Gm Tab, 2 TAB PO DAILY, #180 TAB 3 Refills 02/09/23 Sertraline Hcl (Zoloft) 25 Mg Tab, 1 TAB PO DAILY, #30 TAB 2 Refills 02/09/23 Sodium Bicarbonate (Sodium Bicarbonate) 650 Mg Tab, 4 TAB PO QID 02/09/23 Current Medications Current Medications Medications (Trade) Dose Ordered Sig/Tiffany Route PRN Reason Start Time Stop Time Status Last Admin Acetaminophen (Tylenol Tablet) 325 mg Q4HP PRN PO MILD PAIN (1-3 PAIN SCALE) 08/20/25 09:45 Morphine Sulfate 2 mg Q4HPRN PRN IV SEVERE PAIN (7-10 PAIN SCALE) 08/20/25 09:45 Quetiapine Fumarate (SEROquel TABLET) 50 mg HS PO 08/20/25 22:00 Heparin Sodium (Porcine) 5,000 units Q12HR SC 08/20/25 22:00 Atorvastatin Calcium (Lipitor) 10 mg HS PO 08/20/25 22:00 Multivit/Ca Carb/ B Cmplx/FA/Prenat (Nephro-Remington Tablet) 1 tab DAILY PO 08/21/25 10:00 Sertraline HCl (Zoloft) 50 mg DAILY PO 08/21/25 10:00 Cholecalciferol (Vitamin D3 Tablet) 3,000 unit DAILY PO 08/21/25 10:00 Calcium Carbonate (Tums) 500 mg TIDWM PO 08/20/25 12:00 Family History: Patient reports no known family medical history. Social History He denies smoking alcohol or drug abuse Review of Systems HEENT: Oral mucosa dry Neck no JVD Cardiovascular: Denies for chest pain denies orthopnea or PND Respiratory: Denies cough or shortness of breath Gastrointestinal: Denies for nausea vomiting Musculoskeletal: Denies myalgias Neurological: Denies focal weakness Dermatological: Denies any rash The rest of the review of systems were reviewed pertinent positives and pertinent negatives are as per HPI up to 12 points review of systems H&P Exam Vital Signs/I&O Vital Sign Date Time Temp Pulse Resp B/P (MAP) Pulse Ox O2 Delivery O2 Flow Rate FiO2 08/20/25 14:07 97.6 78 16 138/90 (106) 97 97.6 08/20/25 10:05 Room Air* 0 21 Physical Exam HEENT: No evidence of JVD, no oral ulcers. Pulmonary: Lungs are clear on auscultation bilaterally Cardiovascular S1-S2, no S3 or S4 Abdomen: Bowel sounds positive, soft no rebound tenderness Skin: No rash Neurological: Alert, oriented, no focal weakness Extremities on dialysis access: Left upper arm AV graft with no bruit or thrill Labs/Diagnostic Data Labs/Diagnostic Data Laboratory Tests Test 08/20/25 09:28 08/20/25 09:15 Range/Units Urine Color Light-yellow Yellow Urine Clarity Clear Clear Urine pH 8.0 5.0-9.0 Urine Specific [place] 1.008 1.001-1.035 Urine Protein 2+ H Negative Urine Ketones Negative Negative Urine Blood Trace H Negative /uL Urine Nitrite Negative Negative Urine Bilirubin Negative Negative Urine Urobilinogen Normal Negative mg/dL Urine Leukocyte Esterase Negative Negative /uL Urine RBC 3 0 - 3 /hpf Urine Microscopic WBC 16 H 0-3 /HPF Urine Squamous Epithelial Cells None seen <5 /hpf Urine Bacteria None seen None Seen /hpf Urine Glucose Trace Normal mg/dL Urine Opiates Screen Neg NEGATIVE Urine Fentanyl Screen Neg NEGATIVE Urine Barbiturates Screen Neg NEGATIVE Urine Phencyclidine Screen Neg NEGATIVE Urine Amphetamines Screen Neg NEGATIVE Urine Benzodiazepines Screen Neg NEGATIVE Urine Cocaine Screen Neg NEGATIVE Urine Cannabinoids Screen Neg NEGATIVE White Blood Count 7.5 4.4-10.8 10^3/uL Red Blood Count 3.27 L 4.5-5.90 10^6/uL Hemoglobin 10.8 L 13.5-17.5 g/dL Hematocrit 31.8 L 41.0-53.0 % Mean Corpuscular Volume 97.3 80.0-100.0 fL Mean Corpuscular Hemoglobin 33.0 H 28.0-32.0 pg Mean Corpuscular Hemoglobin Concent 33.9 32.0-36.0 g/dL Red Cell Distribution Width 15.1 H 11.8-14.3 % Platelet Count 184 140-450 10^3/uL Mean Platelet Volume 6.7 L 6.9-10.8 fL Neutrophils (%) (Auto) 59.6 37.0-80.0 % Lymphocytes (%) (Auto) 30.5 10.0-50.0 % Monocytes (%) (Auto) 3.9 0.0-12.0 % Eosinophils (%) (Auto) 5.3 0.0-7.0 % Basophils (%) (Auto) 0.7 0.0-2.0 % Neutrophils # (Auto) 4.5 1.6-8.6 10 ^3/uL Lymphocytes # (Auto) 2.3 0.4-5.4 10 ^3/uL Monocytes # (Auto) 0.3 0-1.3 10 ^3/uL Eosinophils # (Auto) 0.4 0-0.8 10 ^3/uL Basophils # (Auto) 0 0-0.2 10 ^3/uL Nucleated Red Blood Cells 0.1 % Prothrombin Time 9.8 9.3-11.8 sec Prothrombin Time INR 0.92 0.9-1.15 Activated Partial Thromboplast Time 27.3 24.5-34.5 SEC Sodium Level 140 136-145 mmol/L Potassium Level 4.4 3.5-5.1 mmol/L Chloride Level 102 98-107 mmol/L Carbon Dioxide Level 24 20-31 mmol/L Anion Gap 14 5-15 Blood Urea Nitrogen 62 H 9-23 mg/dL Creatinine 11.54 *H 0.700-1.30 mg/dL Glomerular Filtration Rate Calc 5 >90 mL/min BUN/Creatinine Ratio 5.4 L 10.0-20.0 Serum Glucose 110 H 74-106 mg/dL Hemoglobin A1c 5.3 <5.7 % A1C Calcium Level 10.3 8.7-10.4 mg/dL Phosphorus Level 4.8 2.4-5.1 mg/dL Magnesium Level 2.4 1.6-2.6 mg/dL Triglycerides Level 185 H < 150 mg/dL Cholesterol Level 118 < 200 mg/dL LDL Cholesterol 53 < 100 mg/dL HDL Cholesterol 34 L 40-59 mg/dL Vitamin B12 Level 542 211-911 pg/mL Vitamin D 25-Hydroxy 52.8 30.0-100 ng/mL Thyroid Stimulating Hormone (TSH) 2.48 0.55-4.78 uIU/mL Ultrasound Doppler of the graft revealed low flows, complete occlusion. Assessment Assessment: 1. End-stage renal disease on hemodialysis TTS via left upper arm AV graft 2. Malfunction of the left upper arm AV graft due to occlusion 3. Azotemia 4. Hypertension 5. Anemia of end-stage renal disease. Plan: IR consultation was entered at 8:58 a.m. today. Per IR radiologist not available until next week and if dialysis required place Elmer catheter. Consult vascular surgery Dr. Tan, awaiting response for av graft intervention versus placement of the tunneled dialysis line. Fluid restriction less than 1 L per day, low-potassium diet Continue antihypertensive meds Continue home medication Lauro as needed for goal hemoglobin 10 to 11 grams/deciliter Continue phosphate binder with each meal Thank you very much for allowing us to participate in the care of this patient please contact if you have any questions. Plan discussed with: Patient ZA VALDEZ MD Aug 20, 2025 15:19
--- NOTE | 2025-08-20 17:31 | DVHINCON2 ---
Date of service: Aug 20, 2025 Family History: Patient reports no known family medical history. Allergies: Coded Allergies: Ceftriaxone (Verified Allergy, Unknown, 08/20/25) Home Meds Active Scripts Methylprednisolone (Medrol Dosepak) 4 Mg Michael, 4 MG PO UD, #21 TAB UAD Prov:CECILY BENNETT [employer]OTATION TANK OPERATOR 02/13/23 Metronidazole (Flagyl) 500 Mg Tab, 500 MG PO Q8HR for 7 Days, #21 TAB Prov:CECILY BENNETT [employer]OT[employer] T[employer] OPERATOR 02/13/23 Levofloxacin (Levaquin) 500 Mg Tab, 500 MG PO DAILY for 7 Days, #7 TAB Prov:CECILY BENNETT [employer] T[employer] OPERATOR 02/13/23 Reported Medications Potassium Chloride (POTASSIUM CHLORIDE CR) 10 Meq Tb, 30 MEQ PO TID, TAB 02/09/23 Mesalamine (Lialda) 1.2 Gm Tab, 2 TAB PO DAILY, #180 TAB 3 Refills 02/09/23 Sertraline Hcl (Zoloft) 25 Mg Tab, 1 TAB PO DAILY, #30 TAB 2 Refills 02/09/23 Sodium Bicarbonate (Sodium Bicarbonate) 650 Mg Tab, 4 TAB PO QID 02/09/23 Current Medications Current Medications Medications (Trade) Dose Ordered Sig/Tiffany Route PRN Reason Start Time Stop Time Status Last Admin Acetaminophen (Tylenol Tablet) 325 mg Q4HP PRN PO MILD PAIN (1-3 PAIN SCALE) 08/20/25 09:45 Morphine Sulfate 2 mg Q4HPRN PRN IV SEVERE PAIN (7-10 PAIN SCALE) 08/20/25 09:45 Quetiapine Fumarate (SEROquel TABLET) 50 mg HS PO 08/20/25 22:00 Heparin Sodium (Porcine) 5,000 units Q12HR SC 08/20/25 22:00 Atorvastatin Calcium (Lipitor) 10 mg HS PO 08/20/25 22:00 Multivit/Ca Carb/ B Cmplx/FA/Prenat (Nephro-Remington Tablet) 1 tab DAILY PO 08/21/25 10:00 Sertraline HCl (Zoloft) 50 mg DAILY PO 08/21/25 10:00 Cholecalciferol (Vitamin D3 Tablet) 3,000 unit DAILY PO 08/21/25 10:00 Calcium Carbonate (Tums) 500 mg TIDWM PO 08/20/25 12:00 Vital Signs Vital Signs Date Time Temp Pulse Resp B/P (MAP) Pulse Ox O2 Delivery O2 Flow Rate FiO2 08/20/25 15:58 97.9 80 14 126/94 (105) 96 97.9 08/20/25 10:05 Room Air* 0 21 Labs/Diagnostic Data Labs Test 08/20/25 09:28 08/20/25 09:15 Range/Units Urine Color Light-yellow Yellow Urine Clarity Clear Clear Urine pH 8.0 5.0-9.0 Urine Specific [place] 1.008 1.001-1.035 Urine Protein 2+ H Negative Urine Ketones Negative Negative Urine Blood Trace H Negative /uL Urine Nitrite Negative Negative Urine Bilirubin Negative Negative Urine Urobilinogen Normal Negative mg/dL Urine Leukocyte Esterase Negative Negative /uL Urine RBC 3 0 - 3 /hpf Urine Microscopic WBC 16 H 0-3 /HPF Urine Squamous Epithelial Cells None seen <5 /hpf Urine Bacteria None seen None Seen /hpf Urine Glucose Trace Normal mg/dL Urine Opiates Screen Neg NEGATIVE Urine Fentanyl Screen Neg NEGATIVE Urine Barbiturates Screen Neg NEGATIVE Urine Phencyclidine Screen Neg NEGATIVE Urine Amphetamines Screen Neg NEGATIVE Urine Benzodiazepines Screen Neg NEGATIVE Urine Cocaine Screen Neg NEGATIVE Urine Cannabinoids Screen Neg NEGATIVE White Blood Count 7.5 4.4-10.8 10^3/uL Red Blood Count 3.27 L 4.5-5.90 10^6/uL Hemoglobin 10.8 L 13.5-17.5 g/dL Hematocrit 31.8 L 41.0-53.0 % Mean Corpuscular Volume 97.3 80.0-100.0 fL Mean Corpuscular Hemoglobin 33.0 H 28.0-32.0 pg Mean Corpuscular Hemoglobin Concent 33.9 32.0-36.0 g/dL Red Cell Distribution Width 15.1 H 11.8-14.3 % Platelet Count 184 140-450 10^3/uL Mean Platelet Volume 6.7 L 6.9-10.8 fL Neutrophils (%) (Auto) 59.6 37.0-80.0 % Lymphocytes (%) (Auto) 30.5 10.0-50.0 % Monocytes (%) (Auto) 3.9 0.0-12.0 % Eosinophils (%) (Auto) 5.3 0.0-7.0 % Basophils (%) (Auto) 0.7 0.0-2.0 % Neutrophils # (Auto) 4.5 1.6-8.6 10 ^3/uL Lymphocytes # (Auto) 2.3 0.4-5.4 10 ^3/uL Monocytes # (Auto) 0.3 0-1.3 10 ^3/uL Eosinophils # (Auto) 0.4 0-0.8 10 ^3/uL Basophils # (Auto) 0 0-0.2 10 ^3/uL Nucleated Red Blood Cells 0.1 % Prothrombin Time 9.8 9.3-11.8 sec Prothrombin Time INR 0.92 0.9-1.15 Activated Partial Thromboplast Time 27.3 24.5-34.5 SEC Sodium Level 140 136-145 mmol/L Potassium Level 4.4 3.5-5.1 mmol/L Chloride Level 102 98-107 mmol/L Carbon Dioxide Level 24 20-31 mmol/L Anion Gap 14 5-15 Blood Urea Nitrogen 62 H 9-23 mg/dL Creatinine 11.54 *H 0.700-1.30 mg/dL Glomerular Filtration Rate Calc 5 >90 mL/min BUN/Creatinine Ratio 5.4 L 10.0-20.0 Serum Glucose 110 H 74-106 mg/dL Hemoglobin A1c 5.3 <5.7 % A1C Calcium Level 10.3 8.7-10.4 mg/dL Phosphorus Level 4.8 2.4-5.1 mg/dL Magnesium Level 2.4 1.6-2.6 mg/dL Triglycerides Level 185 H < 150 mg/dL Cholesterol Level 118 < 200 mg/dL LDL Cholesterol 53 < 100 mg/dL HDL Cholesterol 34 L 40-59 mg/dL Vitamin B12 Level 542 211-911 pg/mL Vitamin D 25-Hydroxy 52.8 30.0-100 ng/mL Thyroid Stimulating Hormone (TSH) 2.48 0.55-4.78 uIU/mL Assessment [id number] AFEBRILE VSS ESRD ON HEMODIALYSIS MALFUNCTION AV FISTULA RECENT REMOVAL OF R SUBCLAVIAN TUNNELLED CATH CONSIDER PLACEMENT OF DIALYSIS CATH BASED ON ONGOING EVAL Plan discussed with: Patient JUAN GALDAMEZ MD Aug 20, 2025 17:31
[2025-08-20 17:44] VITALS: BP 125/101; PULSE 82; RESP 18; TEMP 98.5; O2SAT 96
--- NOTE | 2025-08-20 17:45 | DVHINCON2 ---
DATE OF CONSULTATION: 08/20/2025 HISTORY OF PRESENT ILLNESS: This patient is 40 years old with history of end-stage renal disease on hemodialysis and his last dialysis was recently but could not be done due to malfunction of his AV fistula on the left side, on the left upper arm and he also had a tunneled catheter placed for dialysis on the right side, right upper chest, and that was removed. Then now, because he does not have any dialysis access, I was requested to see him with placement of a tunneled catheter for dialysis as his AV graft is not functioning. He also was on warfarin but has been taken off. Currently, no chest pain. No nausea or vomiting. No constipation or diarrhea. No hematemesis or melena. No bleeding per rectum. PAST MEDICAL HISTORY: End-stage renal disease, hypertension due to bladder exstrophy and he was diagnosed with chronic kidney disease since age 20, ulcerative colitis, depression, schizophrenia, developmental delay, and multiple UTIs. PAST SURGICAL HISTORY: AV graft creation. PHYSICAL EXAMINATION: VITAL SIGNS: Afebrile. Stable signs. HEENT: With no evidence of pallor, cyanosis, or jaundice. NECK: Supple and nontender, with no thyromegaly or lymphadenopathy. CHEST AND LUNGS: Clear. HEART: Within normal limits. ABDOMEN: Soft. NEUROLOGIC: Not assessed. CLINICAL IMPRESSION: End-stage renal disease requiring vascular access for dialysis. PLAN: The plan would be to consider placement of a tunneled catheter based upon ongoing evaluation and ensuring there is no coagulopathy. MD NEIDA Estrada TID: [id number] RECEIPT: [id number] cc:
[2025-08-20 18:22] VITALS: BP 126/84; PULSE 72
--- NOTE | 2025-08-20 19:28 | DVHSR ---
APPROVED REPORT EXAM: Two-dimensional and M-mode echocardiogram with Doppler and color Doppler. Blood Pressure: 124/97 mmHg INDICATION SOB RISK FACTORS Obesity: Height: 5' 9", Weight: 210 DIMENSIONS LVDd 4.5 (3.8-5.7cm) LA (2D) 3.9 (1.9-4.0cm) Aortic Root 3.4 (2.0-3.7cm) LVDs 3.2 (2.5-4.0cm) LA (MM) (1.9-4.0cm) Aortic Cusp Exc 2.1 (1.5-2.0cm) EF (%) 55.0 (55-70%) Rt. Atrium 4.4 (1.9-4.0cm) Asc. Aorta cm IVSd 1.3 (0.7-1.1cm) RV (D) (1.8-2.4cm) PWd 1.3 (0.7-1.1cm) Mitral Valve Mitral Mitral Stenosis E wave 1.60m/s MV Mean GR. mmHg A wave 0.90m/s MV Peak GR. mmHg E/A ratio 1.8 2D MVA cm2 Aortic Valve Aortic Valve Aortic Stenosis V1 1.50m/s AO Mean GR. 5mmHg V2 1.60m/s AO Peak GR. 10mmHg LVOT Diameter 2.3 (1.8-2.4cm) Doppler JESSICA 3.89cm2 Pulmonic Valve V2 0.70m/s Conclusion Sinus rhythm. Concentric LVH. Right atrial enlargement. Mild aortic root enlargement. Valves are normal. EF is borderline at 50% with normal RV function. Mild TR. Small pericardial effusion not hemodynamically significant. Pericardial fat pad noted.
[2025-08-20 20:00] VITALS: PULSE 73; RESP 18; O2SAT 96
[2025-08-20 21:00] VITALS: BP 118/87; PULSE 73; RESP 17; TEMP 98.3; O2SAT 96
[2025-08-20] MEDS: ATORVASTATIN 20 MG TAB PO SCH (22:00)
[2025-08-20] MEDS: HEPARIN SODIUM (PORCINE) 5000 UNITS/ML 1ML VIAL SC SCH (22:06)
[2025-08-21] VITALS (7 sets, daily range): BP systolic 103–134; BP diastolic 69–82; PULSE 69–100; RESP 12–20; TEMP 97.8–98.2; O2SAT 92–100
[2025-08-21 05:21] LABS: Hematocrit 27.7 % (41.0-53.0); Hemoglobin 9.5 g/dL (13.5-17.5); Mean Corpuscular Hemoglobin 33.2 pg (28.0-32.0); Mean Corpuscular Volume 97.1 fL (80.0-100.0); Nucleated Red Blood Cells % 0.0 %
[2025-08-21 05:53] LABS: Alanine Aminotransferase 26 U/L (7-40); Albumin 3.8 g/dL (3.2-4.8); Alkaline Phosphatase 59 U/L (46-116); Anion Gap 14 (5-15); BUN/Creatinine Ratio 6.3 (10.0-20.0); Calcium 9.4 mg/dL (8.7-10.4); Carbon Dioxide 23 mmol/L (20-31); Chloride 105 mmol/L (98-107); Potassium 5.0 mmol/L (3.5-5.1); Sodium 142 mmol/L (136-145); Total Protein 6.3 g/dL (5.7-8.2)
[2025-08-21 05:54] LABS: Bilirubin, Total 0.5 mg/dL (0.2-1.0)
[2025-08-21 05:58] LABS: Glucose 70 mg/dL (74-106)
[2025-08-21 06:05] LABS: Blood Urea Nitrogen 80 mg/dL (9-23)
[2025-08-21] MEDS ORDERED: SODIUM CHL 0.9% 1000 ML BAG XX ONE (07:00)
[2025-08-21] MEDS: B-COMPLEX W/ C & FOLIC ACID(NEPHROVITE TAB) PO SCH (08:10)
[2025-08-21] MEDS: CHOLECALCIFEROL (VITD3) 1,000UNIT=25mCg TAB PO SCH (08:10)
[2025-08-21] MEDS: SERTRALINE HCL 50 MG TAB PO SCH (08:10)
[2025-08-21] MEDS ORDERED: fentaNYL CITRATE 100 MCG/2 ML VL ONE (10:52)
[2025-08-21] MEDS ORDERED: MIDAZOLAM HCL 2MG/2ML 2ml VIAL (1mg/ml) ONE (10:53)
[2025-08-21] MEDS ORDERED: PROPOFOL 10 MG/ML 20 ML IV ONE (10:54)
[2025-08-21] MEDS ORDERED: LIDOCAINE W/ EPINEPHRINE 1% 20ML VIAL ONE (11:09)
[2025-08-21] MEDS: BUPIVACAINE 0.25% INJ 50ML VIAL ONE (11:10)
[2025-08-21] MEDS: HEPARIN SODIUM (PORCINE) 5000 UNITS/ML 1ML VIAL ONE (11:30)
[2025-08-21] MEDS: HEPARIN 1,000 UNITS/ml 1ML VIAL ONE (11:35)
--- NOTE | 2025-08-21 11:54 | DVHOP2 ---
Operative Report [id number] ESRD POOR VENOUS ACCESS PLACEMENT OF PERMANENT DIALYSIS CATH R SUBCLAVIAN EBL 5 CC NO DRAINS NO COMPLICATIONS STABLE RECOVERY ROOM CXR IN RR FOR LINE PLACEMENT JUAN GALDAMEZ MD Aug 21, 2025 11:54
[2025-08-21] MEDS ORDERED: ONDANSETRON HCL 4 MG/2 ML VIAL IV PRN (12:00)
[2025-08-21] MEDS ORDERED: MIDAZOLAM HCL 2MG/2ML 2ml VIAL (1mg/ml) IV PRN (12:00)
[2025-08-21] MEDS ORDERED: hydrALAZINE HCL 20 MG/ML VL IV PRN (12:00)
[2025-08-21] MEDS ORDERED: HYDROmorphone HCL 2 MG/ML VL/or syr IV PRN (12:00)
--- NOTE | 2025-08-21 12:15 | DVHOP ---
DATE OF SURGERY: 08/21/2025 PREOPERATIVE DIAGNOSIS: End-stage renal disease requiring hemodialysis catheter placement. POSTOPERATIVE DIAGNOSIS: End-stage renal disease requiring hemodialysis catheter placement. PROCEDURE: Placement of tunneled right subclavian hemodialysis catheter. SURGEON: Adam Tellez MD. ENZYME CHEMIST: None. ANESTHESIA: Local and IV sedation. DESCRIPTION OF PROCEDURE: The patient was prepped and draped in the usual sterile fashion in the supine position and then placed into Trendelenburg position. Lidocaine was infiltrated infraclavicularly and an Angiocath needle was advanced into the subclavian vein. The syringe was detached. The guidewire was introduced through the needle into the right heart and confirmed by fluoroscopy. The needle was withdrawn. The tract was dilated and introduced the sheath. Assembly was advanced over the guidewire and the tunneled dialysis catheter was advanced into position from a separate incision that was located more inferiorly and laterally. Lidocaine was infiltrated to allow this to happen and the catheter using a trocar was advanced through the lower incision into the upper incision and then once the catheter was completely in that location with the cuff felt within the subcutaneous tissues, the trocar was withdrawn and the catheter was advanced with both the ends into the sheath that was left in place and then the sheath was withdrawn. After this was being done, the catheter was advanced into position without any complication into the right heart and fluoroscopy confirmed location without any kinking or complications. Both ports were noted to have good flows and they were irrigated with normal saline and then heparinized saline and then concentrated heparin as well for the catheter only. With this being done, the irrigation was performed. Hemostasis was secured with no complications. The infraclavicular wound was brought together using 3-0 Monocryl suture and a Monocryl suture was used for the exit site of the catheter also for the subcutaneous tissues and the flange was secured in place with nylon suture on either side and then a dressing was applied for the exit site and a Dermabond was applied for the infraclavicular incision site. With this being done with no complications, the patient was taken back to the recovery room and a chest x-ray was ordered. MD COLLEEN Estrada/KERRI TID: [id number] RECEIPT: [id number] cc:
--- NOTE | 2025-08-21 12:23 | DVH ---
EXAM DESCRIPTION: Chest 1 View CLINICAL HISTORY: POST OP COMPARISON: XY CHEST XRAY 1 VIEW on DOS: 08/20/25, XY CHEST PORTABLE on DOS: 02/08/23 FINDINGS and IMPRESSION: Lines, tubes, and support devices: Right central venous catheter terminating near cavo-atrial junction. Lungs / Pleura: Band like subsegmental atelectasis in the right mid lung. No pleural effusion. No pneumothorax. Mediastinum: Normal cardiomediastinal silhouette. Osseous structures / Soft tissues: No acute findings.
--- NOTE | 2025-08-21 13:38 | DVH ---
C-ARM FLUOROSCOPY: PROCEDURE: Tunneled right central venous catheter placement FLUOROSCOPY TIME: 9.8 seconds Air Kerma: 1.64 mgy FINDINGS: Spot intraoperative C arm radiographs demonstrating tunneled right central venous catheter placement. IMPRESSION: Please refer to surgical report for detailed findings.
--- NOTE | 2025-08-21 14:13 | DVHPNRES ---
Progress Note Date Seen: Aug 21, 2025 Resident Creating Document: MAXIMILIANO LIVE Medical Necessity Reason Pt with a Central, PICC or Fol: No Subjective Review of Systems Patient is a 40-year-old male with past medical history of ESRD on HD, HLD, CKD, UC, depression and schizophrenia, presented to [facility] ED for placement of a new tunneled hemodialysis catheter. His last hemodialysis session was on Saturday, August 16, 2025, during which his AV fistula was functioning (this was the sixth time it had been used). The previous hemodialysis catheter was removed on Monday, August 18, 2025. During his hemodialysis session on Tuesday, August 19, 2025, the AV fistula was non-functioning. The patient has been on dialysis for the past five months and has had four failed AV fistulas while on warfarin (2 mg orally daily). He denies any associated symptoms. On evaluation today, patient is afebrile, vitals are stable. Initial labs show normocytic anemia, BUN 8.0 and creatinine 2.67. Left upper extremity arteries duplex shows no flow from brachial artery to subclavian vein. The patient underwent placement of a tunneled right subclavian hemodialysis catheter for management of end-stage renal disease requiring hemodialysis access. The procedure was performed by Dr. Adam Tellez under local anesthesia with IV sedation. 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 Denies current tobacco, alcohol and other drug abuse Allergies: Ceftriaxone Home medication: Humira two injections monthly, warfarin2 mg p.o. daily, quetiapine 50 mg p.o. daily, amoxicillin PRN, atorvastatin, vitamin complex, folic acid, omeprazole, calcium, calcitriol, sertraline, vitamin-D Patient seen and examined at bedside. Patient is alert and oriented to time, place person and responding to all questions. Eyes: No Pain, No Vision change, No Conjunctivae inflammation, No Eyelid inflammation, No Other, No Redness ENT: No Ear pain, No Ear discharge, No Nose pain, No Nose discharge, No Nose congestion, No Mouth pain, No Mouth swelling, No Throat pain, No Throat swelling, No Other Cardiovascular: No Chest Pain, No Palpitations, No Orthopnea, No Paroxysmal No Dyspnea, No Edema, No Lt Headedness, No Other Respiratory: No Cough, No Dry, No Shortness of breath, No SOB with exertion, No Wheezing, No Hemoptysis, No Pleuritic Pain, No Sputum, No Other Gastrointestinal: No Nausea, No Vomiting, No Abdominal Pain, No Diarrhea, No Constipation, No Melena, No Hematochezia, No Other Genitourinary: No Dysuria, No Frequency, No Incontinence, No Hematuria, No Retention, No Other Musculoskeletal: No other, No neck pain, No shoulder pain, arm pain, No back pain, No hand pain, No leg pain, No foot pain Skin: No Rash, No Lesions, No Jaundice, No Bruising, No Other Objective vital signs Vital Sign Date Time Temp Pulse Resp B/P (MAP) Pulse Ox O2 Delivery O2 Flow Rate FiO2 08/21/25 12:52 98.2 78 20 134/69 (90) 94 98.2 08/21/25 11:55 Mask 5.0 100 Total Intake and Output 08/20/25 08/20/25 08/21/25 15:00 23:00 07:00 Output Total 200 ml Balance -200 ml medications Current Medications Medications Dose Ordered Sig/Tiffany Route Start Time Stop Time Status Last Admin Dose Admin Acetaminophen 325 mg Q4HP PRN PO 08/20/25 09:45 Morphine Sulfate 2 mg Q4HPRN PRN IV 08/20/25 09:45 Quetiapine Fumarate 50 mg HS PO 08/20/25 22:00 08/20/25 22:01 50 MG Heparin Sodium (Porcine) 5,000 units Q12HR SC 08/20/25 22:00 08/21/25 08:22 5,000 UNITS Atorvastatin Calcium 10 mg HS PO 08/20/25 22:00 08/20/25 22:00 10 MG Multivit/Ca Carb/ B Cmplx/FA/Prenat 1 tab DAILY PO 08/21/25 10:00 08/21/25 08:10 1 TAB Sertraline HCl 50 mg DAILY PO 08/21/25 10:00 08/21/25 08:10 50 MG Cholecalciferol 3,000 unit DAILY PO 08/21/25 10:00 08/21/25 08:10 3,000 UNIT Calcium Carbonate 500 mg TIDWM PO 08/20/25 12:00 08/21/25 08:10 500 MG Examination General Appearance: Cooperative. Well developed. Well nourished. NAD Head Exam: Normal inspection Neck Exam: Normal inspection. Non-tender. Normal alignment Pulmonary/Respiratory: Chest non-tender. Clear bilateral breath sounds, no crackles, no wheezing. Cardiovascular/Chest: Regular rate and rhythm. No murmurs. No JVD. Peripheral Pulses: 2+ Radial (R). 2+ Radial (L). 2+ Pedal (R). 2+ Pedal (L) Abdominal Exam: Normal bowel sounds. Soft. normal abdomen, no visible veins, Nontender. No hepatospenomegaly. No masses Ankle Exam: Negative ankle edema Lower extremities: Negative lower extremity edema Neuro/Mental Status: A&O x4. Coherent. Thoughts/Psych: Normal thought pattern. Appropriate mood and affect. Good judgement and insight MSK/skin exam: Mobilizes 4 limbs. Skin is dry and warm. Left upper arm AV graft no bruit or thrill. Right upper chest tunneled dialysis line in place. laboratory and microbiology Laboratory Tests 08/21/25 04:43 Test 08/21/25 04:43 Range/Units Serum Glucose 70 L 74-106 mg/dL Microbiology Date/Time Source Procedure Growth Status 08/20/25 18:16 Nose MRSA Screen - Final Complete Labs and/or images reviewed: Labs reviewed by me, Image(s) reviewed by me Problem List/Assessment/Plan Problem List/Assessment/Plan End-stage renal disease on hemodialysis TTS via left upper arm AV graft Malfunction of the left upper arm AV graft due to occlusion Surgical consult Vascular consult Dr. Shala Thurston 4,000 unit sc postdi Duplex Scan Upper Extremity Artery: Suggest no flow in the graft left upper extremity. 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 Findings flow in the left subclavian vein proximal to the graft. Chest X-ray: Spot intraoperative C arm radiographs demonstrating tunneled right central venous catheter placement. C-Arm Fluoroscopy: Spot intraoperative C arm radiographs demonstrating tunneled right central venous catheter placement. MRSA Screen: No MRSA detected. Heparin 5,000 UNIT SC q12hr pain management with Morphine and Tylenol Atorvastatin 10 MG PO hs B-COMPLEX Calcium Carbonate 500 MG PO tid Vitamin D3 3,000 UNIT PO Hypertensive heart disease with concentric LVH and borderline LV function Subsegmental atelectasis in right mid-lung Chest X-ray: Band like subsegmental atelectasis in the right mid lung. No pleural effusion. No pneumothorax. Echocardiogram: Sinus rhythm. Concentric LVH. Right atrial enlargement. Mild aortic root enlargement. Valves are normal. EF is borderline at 50% with normal RV function. Mild TR. Small pericardial effusion not hemodynamically significant. Pericardial fat pad noted. Chest X-ray: No acute intrathoracic abnormality. Normocytic anemia Anemia of end-stage renal disease. monitor Ulcerative colitis Depression Sertraline 50 MG PO daily Schizophrenia Quetiapine 50 MG PO hs Obesity, BMI 31.1 kg/m2 I have counseled the patient on healthy lifestyle modifications Diet: Renal Goals of care: Full code, discussed for >30 minutes on 08/21/25 Plan discussed with patient Plan discussed with Dr. Sanchez Plan discussed with: Patient Date of Service: Aug 21, 2025 Billing Provider: FELY SANCHEZ MD Common Visit Codes: [id number] INP/OBS CARE(HIGH) MAXIMILIANO LIVE RESIDENT Aug 21, 2025 14:13 FELY SANCHEZ MD Aug 26, 2025 21:32
--- NOTE | 2025-08-21 15:23 | DVHPN2 ---
Progress Note - Dictate Date Seen: Aug 21, 2025 Medical Necessity Reason Pt with a Central, PICC or Fol: No Subjective Patient has no complaints today. He just had his right chest tunneled line in place vital signs Vital Sign Date Time Temp Pulse Resp B/P (MAP) Pulse Ox O2 Delivery O2 Flow Rate FiO2 08/21/25 12:52 98.2 78 20 134/69 (90) 94 98.2 08/21/25 11:55 Mask 5.0 100 Total Intake and Output 08/20/25 08/20/25 08/21/25 15:00 23:00 07:00 Output Total 200 ml Balance -200 ml medications Current Medications Medications Dose Ordered Sig/Tiffany Route Start Time Stop Time Status Last Admin Dose Admin Acetaminophen 325 mg Q4HP PRN PO 08/20/25 09:45 Morphine Sulfate 2 mg Q4HPRN PRN IV 08/20/25 09:45 Quetiapine Fumarate 50 mg HS PO 08/20/25 22:00 08/20/25 22:01 50 MG Heparin Sodium (Porcine) 5,000 units Q12HR SC 08/20/25 22:00 08/21/25 08:22 5,000 UNITS Atorvastatin Calcium 10 mg HS PO 08/20/25 22:00 08/20/25 22:00 10 MG Multivit/Ca Carb/ B Cmplx/FA/Prenat 1 tab DAILY PO 08/21/25 10:00 08/21/25 08:10 1 TAB Sertraline HCl 50 mg DAILY PO 08/21/25 10:00 08/21/25 08:10 50 MG Cholecalciferol 3,000 unit DAILY PO 08/21/25 10:00 08/21/25 08:10 3,000 UNIT Calcium Carbonate 500 mg TIDWM PO 08/20/25 12:00 08/21/25 08:10 500 MG objective HEENT: No evidence of JVD, no oral ulcers. Pulmonary: Lungs are clear on auscultation bilaterally Cardiovascular S1-S2, no S3 or S4 Abdomen: Bowel sounds positive, soft no rebound tenderness Skin: No rash Neurological: Alert, oriented, no focal weakness Hemodialysis access: Left upper arm AV graft no bruit or thrill Right upper chest tunneled dialysis line in place laboratory and microbiology Laboratory Tests 08/21/25 04:43 Test 08/21/25 04:43 Range/Units Serum Glucose 70 L 74-106 mg/dL Assessment/Plan Assessment: 1. End-stage renal disease on hemodialysis TTS via left upper arm AV graft 2. Malfunction of the left upper arm AV graft due to occlusion 3. Azotemia 4. Hypertension 5. Anemia of end-stage renal disease. Plan: IR labs available until next week, vascular surgery is out of town until next week. Dr. Tellez surgeon currently placed tunneled HD line, and requested to rest the patient until tomorrow attempt dialysis unless urgent. Plan for dialysis a.m. with heparin after which he can be discharged home. Fistulogram will be scheduled as an outpatient Fluid restriction less than 1 L per day, low-potassium diet Continue antihypertensive meds Continue home medication Lauro as needed for goal hemoglobin 10 to 11 grams/deciliter Continue phosphate binder with each meal Thank you very much for allowing us to participate in the care of this patient please contact if you have any questions. Plan discussed with: Patient ZA VALDEZ MD Aug 21, 2025 15:23
[2025-08-21] MEDS: SODIUM ZIRCONIUM CYCL 10 GM PAK PO ONE (18:10)
[2025-08-21] MEDS: EPOETIN ALFA-EPBX 4,000 UNIT/ML VIAL SC ONE (21:18)
[2025-08-22] VITALS (7 sets, daily range): BP systolic 110–122; BP diastolic 68–85; PULSE 73–95; RESP 17–20; TEMP 97.8–98.7; O2SAT 95–97
[2025-08-22 05:45] LABS: Hematocrit 26.7 % (41.0-53.0); Hemoglobin 9.2 g/dL (13.5-17.5); Mean Corpuscular Hemoglobin 33.7 pg (28.0-32.0); Mean Corpuscular Volume 97.8 fL (80.0-100.0); Nucleated Red Blood Cells % 0.1 %
[2025-08-22 06:10] LABS: Alanine Aminotransferase 26 U/L (7-40); Alkaline Phosphatase 58 U/L (46-116); Anion Gap 16 (5-15); BUN/Creatinine Ratio 7.5 (10.0-20.0); Calcium 9.6 mg/dL (8.7-10.4); Chloride 102 mmol/L (98-107); Sodium 137 mmol/L (136-145); Total Protein 6.7 g/dL (5.7-8.2)
[2025-08-22 06:11] LABS: Albumin 4.1 g/dL (3.2-4.8)
[2025-08-22 06:12] LABS: Bilirubin, Total 0.3 mg/dL (0.2-1.0); Carbon Dioxide 19 mmol/L (20-31); Glucose 118 mg/dL (74-106); Potassium 5.2 mmol/L (3.5-5.1)
[2025-08-22 06:14] LABS: Blood Urea Nitrogen 96 mg/dL (9-23)
[2025-08-22] MEDS ORDERED: SODIUM CHL 0.9% 1000 ML BAG XX ONE (07:00)
--- NOTE | 2025-08-22 10:28 | DVHPN2 ---
Progress Note Date Seen: Aug 22, 2025 Medical Necessity Reason Pt with a Central, PICC or Fol: No Objective vital signs Vital Sign Date Time Temp Pulse Resp B/P (MAP) Pulse Ox O2 Delivery O2 Flow Rate FiO2 08/22/25 09:00 98.7 82 18 119/85 (96) 97 98.7 08/22/25 07:30 Room Air* 0 21 Total Intake and Output 08/21/25 08/21/25 08/22/25 15:00 23:00 07:00 Intake Total 210 ml 450 ml Balance 210 ml 450 ml medications Current Medications Medications Dose Ordered Sig/Tiffany Route Start Time Stop Time Status Last Admin Dose Admin Acetaminophen 325 mg Q4HP PRN PO 08/20/25 09:45 Morphine Sulfate 2 mg Q4HPRN PRN IV 08/20/25 09:45 Quetiapine Fumarate 50 mg HS PO 08/20/25 22:00 08/21/25 21:15 50 MG Heparin Sodium (Porcine) 5,000 units Q12HR SC 08/20/25 22:00 08/21/25 21:14 5,000 UNITS Atorvastatin Calcium 10 mg HS PO 08/20/25 22:00 08/21/25 21:14 10 MG Multivit/Ca Carb/ B Cmplx/FA/Prenat 1 tab DAILY PO 08/21/25 10:00 08/21/25 08:10 1 TAB Sertraline HCl 50 mg DAILY PO 08/21/25 10:00 08/21/25 08:10 50 MG Cholecalciferol 3,000 unit DAILY PO 08/21/25 10:00 08/21/25 08:10 3,000 UNIT Calcium Carbonate 500 mg TIDWM PO 08/20/25 12:00 08/22/25 09:34 500 MG laboratory and microbiology Laboratory Tests 08/22/25 05:09 Test 08/22/25 05:09 Range/Units Serum Glucose 118 H 74-106 mg/dL Microbiology Date/Time Source Procedure Growth Status 08/20/25 18:16 Nose MRSA Screen - Final Complete Problem List/Assessment/Plan Problem List/Assessment/Plan POD 1 S/P R SUBCLAVIAN TUNNELLED CATH PLACEMENT NO COMPLICATIONS DIALYSIS ONGOING Plan discussed with: Patient My Orders My Orders Orders - JUAN GALDAMEZ MD Procedure Category Date Status Time Chest Portable XY 11/27/25 Resulted 11:36 Communication Order ORDERS 08/21/25 Transmitted 12:11 Chest Xray 1 View XY 08/21/25 Resulted 12:00 C Arm Fluoroscopy Up XY 08/21/25 Resulted To 60min 12:00 Renal Specific DIET 08/21/25 Transmitted Diet(Renal) Dinner JUAN GALDAMEZ MD Aug 22, 2025 10:28
--- NOTE | 2025-08-22 11:52 | DVHDSRES ---
Discharge Summary Date of Admission Resident Creating Document: MAXIMILIANO LIVE RESIDENT Aug 20, 2025 at 09:41 Date of Discharge: Aug 22, 2025 Labs/Diagnostic Data: Laboratory Results Test 08/22/25 05:09 08/20/25 09:28 08/20/25 09:15 White Blood Count 9.9 10^3/uL (4.4-10.8) Red Blood Count 2.73 10^6/uL (4.5-5.90) Hemoglobin 9.2 g/dL (13.5-17.5) Hematocrit 26.7 % (41.0-53.0) Mean Corpuscular Volume 97.8 fL (80.0-100.0) Mean Corpuscular Hemoglobin 33.7 pg (28.0-32.0) Mean Corpuscular Hemoglobin Concent 34.4 g/dL (32.0-36.0) Red Cell Distribution Width 14.8 % (11.8-14.3) Platelet Count 185 10^3/uL (140-450) Mean Platelet Volume 6.7 fL (6.9-10.8) Neutrophils (%) (Auto) 87.9 % (37.0-80.0) Lymphocytes (%) (Auto) 9.2 % (10.0-50.0) Monocytes (%) (Auto) 2.8 % (0.0-12.0) Eosinophils (%) (Auto) 0.0 % (0.0-7.0) Basophils (%) (Auto) 0.1 % (0.0-2.0) Neutrophils # (Auto) 8.7 10 ^3/uL (1.6-8.6) Lymphocytes # (Auto) 0.9 10 ^3/uL (0.4-5.4) Monocytes # (Auto) 0.3 10 ^3/uL (0-1.3) Eosinophils # (Auto) 0 10 ^3/uL (0-0.8) Basophils # (Auto) 0 10 ^3/uL (0-0.2) Nucleated Red Blood Cells 0.1 % Sodium Level 137 mmol/L (136-145) Potassium Level 5.2 mmol/L (3.5-5.1) Chloride Level 102 mmol/L (98-107) Carbon Dioxide Level 19 mmol/L (20-31) Anion Gap 16 (5-15) Blood Urea Nitrogen 96 mg/dL (9-23) Creatinine 12.73 mg/dL (0.700-1.30) Glomerular Filtration Rate Calc 5 mL/min (>90) BUN/Creatinine Ratio 7.5 (10.0-20.0) Serum Glucose 118 mg/dL (74-106) Calcium Level 9.6 mg/dL (8.7-10.4) Total Bilirubin 0.3 mg/dL (0.2-1.0) Aspartate Amino Transferase (AST) 14 U/L (13-40) Alanine Aminotransferase (ALT) 26 U/L (7-40) Alkaline Phosphatase 58 U/L (46-116) Total Protein 6.7 g/dL (5.7-8.2) Albumin 4.1 g/dL (3.2-4.8) Urine Color Light-yellow (Yellow) Urine Clarity Clear (Clear) Urine pH 8.0 (5.0-9.0) Urine Specific Lexa 1.008 (1.001-1.035) Urine Protein 2+ (Negative) Urine Ketones Negative (Negative) Urine Blood Trace /uL (Negative) Urine Nitrite Negative (Negative) Urine Bilirubin Negative (Negative) Urine Urobilinogen Normal mg/dL (Negative) Urine Leukocyte Esterase Negative /uL (Negative) Urine RBC 3 /hpf (0 - 3) Urine Microscopic WBC 16 /HPF (0-3) Urine Squamous Epithelial Cells None seen /hpf (<5) Urine Bacteria None seen /hpf (None Seen) Urine Glucose Trace mg/dL (Normal) Urine Opiates Screen Neg (NEGATIVE) Urine Fentanyl Screen Neg (NEGATIVE) Urine Barbiturates Screen Neg (NEGATIVE) Urine Phencyclidine Screen Neg (NEGATIVE) Urine Amphetamines Screen Neg (NEGATIVE) Urine Benzodiazepines Screen Neg (NEGATIVE) Urine Cocaine Screen Neg (NEGATIVE) Urine Cannabinoids Screen Neg (NEGATIVE) Prothrombin Time 9.8 sec (9.3-11.8) Prothrombin Time INR 0.92 (0.9-1.15) Activated Partial Thromboplast Time 27.3 SEC (24.5-34.5) Hemoglobin A1c 5.3 % A1C (<5.7) Phosphorus Level 4.8 mg/dL (2.4-5.1) Magnesium Level 2.4 mg/dL (1.6-2.6) Triglycerides Level 185 mg/dL (< 150) Cholesterol Level 118 mg/dL (< 200) LDL Cholesterol 53 mg/dL (< 100) HDL Cholesterol 34 mg/dL (40-59) Vitamin B12 Level 542 pg/mL (211-911) Vitamin D 25-Hydroxy 52.8 ng/mL (30.0-100) Thyroid Stimulating Hormone (TSH) 2.48 uIU/mL (0.55-4.78) Other Laboratory Tests 08/22/25 05:09 Brief Hx & Hospital Course: The patient is a 40-year-old male with a past medical history of end-stage renal disease (ESRD) on hemodialysis, hypertension, dyslipidemia, 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 He presented to [facility] ED for placement of a new tunneled hemodialysis catheter after malfunction of his left upper arm AV graft. 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 His last successful dialysis session was on August 16, 2025. On August 19, 2025, the AV graft was non-functional. He denies fever, chest pain, dyspnea, or other associated symptoms. Allergic to ceftriaxone. Social history: lives with family in [place], denies tobacco, alcohol, or illicit drug use. Hospital Course On arrival, the patient was afebrile with stable vital signs. Physical exam was unremarkable except for absent bruit/thrill over the left upper arm AV graft and presence of a prior tunneled catheter site. Laboratory evaluation revealed normocytic anemia, BUN 8.0 mg/dL, and creatinine 2.67 mg/dL. Duplex ultrasound of the left upper extremity demonstrated complete occlusion of the AV graft from the brachial artery to the subclavian vein. Chest X-ray showed no acute intrathoracic abnormality except for band-like subsegmental atelectasis in the right mid-lung. Echocardiogram revealed concentric LVH, borderline LV function (EF ~50%), mild tricuspid regurgitation, and a small non-significant pericardial effusion. The patient underwent placement of a tunneled right subclavian hemodialysis catheter on August 21, 2025, performed by Dr. Adam Tellez under local anesthesia with IV sedation. The procedure was uneventful, and catheter position was confirmed by fluoroscopy and chest X-ray. Postoperatively, the patient remained hemodynamically stable with good catheter flow. Pain was managed with morphine and acetaminophen. He received prophylactic heparin and continued home medications including warfarin, atorvastatin, sertraline, quetiapine, and vitamin supplements. MRSA screen was negative. The patient was counseled on renal diet and healthy lifestyle modifications. He will continue scheduled hemodialysis via the new tunneled catheter and follow up with vascular surgery and nephrology for long-term access planning. Examination General Appearance: Cooperative. Well developed. Well nourished. NAD Head Exam: Normal inspection Neck Exam: Normal inspection. Non-tender. Normal alignment Pulmonary/Respiratory: Chest non-tender. Clear bilateral breath sounds, no crackles, no wheezing. Cardiovascular/Chest: Regular rate and rhythm. No murmurs. No JVD. Peripheral Pulses: 2+ Radial (R). 2+ Radial (L). 2+ Pedal (R). 2+ Pedal (L) Abdominal Exam: Normal bowel sounds. Soft. normal abdomen, no visible veins, Nontender. No hepatospenomegaly. No masses Ankle Exam: Negative ankle edema Lower extremities: Negative lower extremity edema Neuro/Mental Status: A&O x4. Coherent. Thoughts/Psych: Normal thought pattern. Appropriate mood and affect. Good judgement and insight MSK/skin exam: Mobilizes 4 limbs. Skin is dry and warm. Left upper arm AV graft no bruit or thrill. Right upper chest tunneled dialysis line in place. Operations or Procedures PATIENT: OSKAR TORIBIO ACCT: [id number] UNIT: [id number] : 1985 LOC: CENTRAL ROOM / BED: [facility] / AGE / SEX: 40 / M ADM STATUS: ADM IN SERVICE 1200 ORDERING PHYSICIAN: ADMA TELLEZ MD PROCEDURE(s): CXR1 - CHEST XRAY 1 VIEW REASON: DIALYSIS CATH ORDER NUMBER(s): [id number], ACCESSION NUMBER(s): [id number] C-ARM FLUOROSCOPY: PROCEDURE: Tunneled right central venous catheter placement FLUOROSCOPY TIME: 9.8 seconds Air Kerma: 1.64 mgy FINDINGS: Spot intraoperative C arm radiographs demonstrating tunneled right central venous catheter placement. IMPRESSION: Please refer to surgical report for detailed findings. ATED BY: KEHINDE ONOFRE MD DICTATED DATE/TIME: 11/27/25 1336 SIGNED BY: KEHINDE ONOFRE MD SIGNED DATE/TIME: 08/21/251335 PATIENT: OSKAR TORIBIO ACCT: [id number] UNIT: [id number] : 1985 LOC: CENTRAL ROOM / BED: 0212 / B AGE / SEX: 40 / M ADM STATUS: ADM IN SERVICE 1200 ORDERING PHYSICIAN: ADAM TELLEZ MD PROCEDURE(s): CARM1 - C ARM FLUOROSCOPY UP TO 60MIN REASON: DIALYSIS CATH ORDER NUMBER(s): [id number], ACCESSION NUMBER(s): [id number] C-ARM FLUOROSCOPY: PROCEDURE: Tunneled right central venous catheter placement FLUOROSCOPY TIME: 9.8 seconds Air Kerma: 1.64 mgy FINDINGS: Spot intraoperative C arm radiographs demonstrating tunneled right central venous catheter placement. IMPRESSION: Please refer to surgical report for detailed findings. ATED BY: KEHINDE ONOFRE MD DICTATED DATE/TIME: 08/21/251335 SIGNED BY: KEHINDE ONOFRE MD SIGNED DATE/TIME: 08/21/251335 PATIENT: CATARINOOSKAR ACCT: [id number] UNIT: [id number] : 1985 LOC: CENTRAL ROOM / BED: 0212 / B AGE / SEX: 40 / M ADM STATUS: ADM IN SERVICE 1136 ORDERING PHYSICIAN: ADAM TELLEZ MD PROCEDURE(s): CXRP - CHEST PORTABLE REASON: POST OP ORDER NUMBER(s): [id number], ACCESSION NUMBER(s): [id number] EXAM DESCRIPTION: Chest 1 View CLINICAL HISTORY: POST OP COMPARISON: XY CHEST XRAY 1 VIEW on DOS: 08/20/25, XY CHEST PORTABLE on DOS: 02/08/23 FINDINGS and IMPRESSION: Lines, tubes, and support devices: Right central venous catheter terminating near cavo-atrial junction. Lungs / Pleura: Band like subsegmental atelectasis in the right mid lung. No pleural effusion. No pneumothorax. Mediastinum: Normal cardiomediastinal silhouette. Osseous structures / Soft tissues: No acute findings. PATIENT: OSKAR TORIBIO ACCT: [id number] UNIT: [id number] : 1985 LOC: CENTRAL ROOM / BED: [address] [place] [address] AGE / SEX: 40 / M ADM STATUS: ADM IN SERVICE 1051 ORDERING PHYSICIAN: JULIO MAHAN PROCEDURE(s): LUEAD - Lt Upper Ext Art Duplex REASON: ORDER NUMBER(s): [id number], ACCESSION NUMBER(s): [id number] ADDENDUM ADDENDUM # 1 IMPRESSION: 1. 1. Findings suggest no flow in the graft in the left upper extremity. Findings suggest complete occlusion of the graft from the brachial artery the subclavian vein. 2. Findings show flow in the subclavian vein proximal to the graft. ORIGINAL REPORT Upper Extremity Venous Duplex Clinical History: Pain Comparison: None Technique: Duplex Doppler evaluation of the venous system of the LEFT lower neck and upper extremity including color Doppler and spectral/pulsed waveform analysis was performed. Findings: The internal jugular vein demonstrates appropriate compressibility and waveform variability. The subclavian vein is patent on color Doppler evaluation without intraluminal thrombus and demonstrates waveform variability. The visualized portion of the brachiocephalic vein is patent on color Doppler evaluation without intraluminal thrombus and demonstrates waveform variability. The axillary vein demonstrates appropriate compressibility and waveform variability. The brachial veins demonstrate appropriate compressibility and patency on Doppler evaluation. LEFT UPPER EXTREMITY GRAFT VISUALIZED WITH FLOW DEMONSTRATED. PRE ANASTOMOSIS THERE IS 73.2 CM/SEC BLOOD FLOW WITH 3-PHASE WAVEFORMS. Brachial artery left upper extremity at the fistulous graft shows 100.4 cm/sec blood flow with 3 phase waveforms. Brachial artery blood flow at the anastomosis left upper extremity shows 89.8 cm/sec blood flow with 3-phase waveforms. Imaging proximal to the anastomosis shows no blood flow. Imaging at mid anastomosis of the fistula demonstrates no blood flow. Distal to the anastomosis of the graft in the brachial artery left upper extremity shows no blood flow. The basilic vein demonstrates appropriate compressibility and patency on Doppler evaluation. The cephalic vein demonstrates appropriate compressibility and patency on Doppler evaluation. Impression: 1. Suggest no flow in the graft left upper extremity. 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 2. Findings flow in the left subclavian vein proximal to the graft. Study marked sign and notify. PATIENT: OSKAR TORIBIO ACCT: [id number] UNIT: [id number] : 1985 LOC: OVERFLOW ROOM / BED: [facility] / A AGE / SEX: 40 / M ADM STATUS: ADM IN SERVICE 0956 ORDERING PHYSICIAN: JULIO MAHAN PROCEDURE(s): CXR1 - CHEST XRAY 1 VIEW REASON: SOB ORDER NUMBER(s): [id number], ACCESSION NUMBER(s): [id number] XY CHEST XRAY 1 VIEW, HISTORY: SOB COMPARISON: XY CHEST PORTABLE on DOS: 02/08/23 XY CHEST PORTABLE on DOS: 02/08/23 TECHNICAL DATA: 1 view of the chest was obtained. FINDINGS: Lines and tubes: None Cardiomediastinal silhouette: normal Pulmonary vasculature: normal Lung expansion: normal Lung airspace: normal Lung interstitium: normal Pleura: normal Pneumothorax: no Bones: Unremarkable Other: no IMPRESSION: No acute intrathoracic abnormality. - PATIENT: OSKAR TORIBIO ACCT: [id number] UNIT: [id number] : 1985 LOC: CENTRAL ROOM / BED: 0212 / AGE / SEX: 40 / M ADM STATUS: ADM IN SERVICE 0941 ORDERING PHYSICIAN: JULIO MAHAN PROCEDURE(s): ECIDC - ECHO 2D MODE CARDIAC DOP REASON: sob ORDER NUMBER(s): [id number], ACCESSION NUMBER(s): [id number] APPROVED REPORT EXAM: Two-dimensional and M-mode echocardiogram with Doppler and color Doppler. Blood Pressure: 124/97 mmHg INDICATION SOB RISK FACTORS Obesity: Height: 5' 9", Weight: 210 DIMENSIONS LVDd 4.5 (3.8-5.7cm) LA (2D) 3.9 (1.9-4.0cm) Aortic Root 3.4 (2.0- 3.7cm) LVDs 3.2 (2.5-4.0cm) LA (MM) (1.9-4.0cm) Aortic Cusp Exc 2.1 (1.5- 2.0cm) EF (%) 55.0 (55-70%) Rt. Atrium 4.4 (1.9-4.0cm) Asc. Aorta cm IVSd 1.3 (0.7-1.1cm) RV (D) (1.8-2.4cm) PWd 1.3 (0.7-1.1cm) Mitral Valve Mitral Mitral Stenosis E wave 1.60m/s MV Mean GR. mmHg A wave 0.90m/s MV Peak GR. mmHg E/A ratio 1.8 2D MVA cm2 Aortic Valve Aortic Valve Aortic Stenosis V1 1.50m/s AO Mean GR. 5mmHg V2 1.60m/s AO Peak GR. 10mmHg LVOT Diameter 2.3 (1.8-2.4cm) Doppler JESSICA 3.89cm2 Pulmonic Valve V2 0.70m/s Conclusion Sinus rhythm. Concentric LVH. Right atrial enlargement. Mild aortic root enlargement. Valves are normal. EF is borderline at 50% with normal RV function. Mild TR. Small pericardial effusion not hemodynamically significant. Pericardial fat pad noted. SIGNED BY: KELLY VALLEJO Sr., MD SIGNED DATE/TIME: 08/20/251927 - DATE OF SURGERY: 08/21/2025 PREOPERATIVE DIAGNOSIS: End-stage renal disease requiring hemodialysis catheter placement. POSTOPERATIVE DIAGNOSIS: End-stage renal disease requiring hemodialysis catheter placement. PROCEDURE: Placement of tunneled right subclavian hemodialysis catheter. SURGEON: Adam Tellez MD. SUPERVISOR OF RESEARCH: None. ANESTHESIA: Local and IV sedation. DESCRIPTION OF PROCEDURE: The patient was prepped and draped in the usual sterile fashion in the supine position and then placed into Trendelenburg position. Lidocaine was infiltrated infraclavicularly and an Angiocath needle was advanced into the subclavian vein. The syringe was detached. The guidewire was introduced through the needle into the right heart and confirmed by fluoroscopy. The needle was withdrawn. The tract was dilated and introduced the sheath. Assembly was advanced over the guidewire and the tunneled dialysis catheter was advanced into position from a separate incision that was located more inferiorly and laterally. Lidocaine was infiltrated to allow this to happen and the catheter using a trocar was advanced through the lower incision into the upper incision and then once the catheter was completely in that location with the cuff felt within the subcutaneous tissues, the trocar was withdrawn and the catheter was advanced with both the ends into the sheath that was left in place and then the sheath was withdrawn. After this was being done, the catheter was advanced into position without any complication into the right heart and fluoroscopy confirmed location without any kinking or complications. Both ports were noted to have good flows and they were irrigated with normal saline and then heparinized saline and then concentrated heparin as well for the catheter only. With this being done, the irrigation was performed. Hemostasis was secured with no complications. The infraclavicular wound was brought together using 3-0 Monocryl suture and a Monocryl suture was used for the exit site of the catheter also for the subcutaneous tissues and the flange was secured in place with nylon suture on either side and then a dressing was applied for the exit site and a Dermabond was applied for the infraclavicular incision site. With this being done with no complications, the patient was taken back to the recovery room and a chest x-ray was ordered. MD COLLEEN Estrada/KERRI TID: [id number] RECEIPT: [id number] cc: DICTATED BY:ADAM TELLEZ MD DICTATED DATE/TIME:08/21/25 0952 - PATIENT: OSKAR TORIBIO ACCT: [id number] UNIT: [id number] : 1985 LOC: CENTRAL ROOM / BED: 0212 / B AGE / SEX: 40 / M ADM STATUS: ADM IN SERVICE 0941 ORDERING PHYSICIAN: JULIO MAHAN PROCEDURE(s): ECIDC - ECHO 2D MODE CARDIAC DOP REASON: sob ORDER NUMBER(s): [id number], ACCESSION NUMBER(s): [id number] APPROVED REPORT EXAM: Two-dimensional and M-mode echocardiogram with Doppler and color Doppler. Blood Pressure: 124/97 mmHg INDICATION SOB RISK FACTORS Obesity: Height: 5' 9", Weight: 210 DIMENSIONS LVDd 4.5 (3.8-5.7cm) LA (2D) 3.9 (1.9-4.0cm) Aortic Root 3.4 (2.0- 3.7cm) LVDs 3.2 (2.5-4.0cm) LA (MM) (1.9-4.0cm) Aortic Cusp Exc 2.1 (1.5- 2.0cm) EF (%) 55.0 (55-70%) Rt. Atrium 4.4 (1.9-4.0cm) Asc. Aorta cm IVSd 1.3 (0.7-1.1cm) RV (D) (1.8-2.4cm) PWd 1.3 (0.7-1.1cm) Mitral Valve Mitral Mitral Stenosis E wave 1.60m/s MV Mean GR. mmHg A wave 0.90m/s MV Peak GR. mmHg E/A ratio 1.8 2D MVA cm2 Aortic Valve Aortic Valve Aortic Stenosis V1 1.50m/s AO Mean GR. 5mmHg V2 1.60m/s AO Peak GR. 10mmHg LVOT Diameter 2.3 (1.8-2.4cm) Doppler JESSICA 3.89cm2 Pulmonic Valve V2 0.70m/s Conclusion Sinus rhythm. Concentric LVH. Right atrial enlargement. Mild aortic root enlargement. Valves are normal. EF is borderline at 50% with normal RV function. Mild TR. Small pericardial effusion not hemodynamically significant. Pericardial fat pad noted. SIGNED BY: KELLY VALLEJO Sr., MD SIGNED DATE/TIME: 08/20/251927 Condition at Discharge: Stable Final Diagnosis/Problems List End-stage renal disease on hemodialysis TTS via left upper arm AV graft Malfunction of the left upper arm AV graft due to occlusion Hypertensive heart disease with concentric LVH and borderline LV function Subsegmental atelectasis in right mid-lung Normocytic anemia Ulcerative colitis Depression Schizophrenia Obesity, BMI 31.1 kg/m2 Discharge Disposition: Home Discharge Instruct/Medications Diet: Regular Activity: No Restrictions, As Tolerated Follow Up/Referral: Follow up with PCP within 1 week Medications: continue home medications Scheduled Levofloxacin (Levaquin), 500 MG PO DAILY Mesalamine (Lialda), 2 TAB PO DAILY, (Reported) Methylprednisolone (Medrol Dosepak), 4 MG PO UD Metronidazole (Flagyl), 500 MG PO Q8HR Potassium Chloride (Potassium Chloride Cr), 30 MEQ PO TID, (Reported) Sertraline Hcl (Zoloft), 1 TAB PO DAILY, (Reported) Sodium Bicarbonate (Sodium Bicarbonate), 4 TAB PO QID, (Reported) Discharge Statement: "Patient was advised to return to the ER or call 911 if any headaches, dizziness, shortness of breath, chest pain, abdominal pain, bleeding, fevers, or worsening of medical condition. Patient was counseled about treatment plan, medications, possible side effects, patientverbalized understanding. All questions were answered to the best of my ability. This discharge took greater then 30 minutes in planning, reviewing documentation, counseling the patient, and discussing with other team members." ASSESSMENT ASSESSMENT Assessment End-stage renal disease on hemodialysis TTS via left upper arm AV graft Malfunction of the left upper arm AV graft due to occlusion Hypertensive heart disease with concentric LVH and borderline LV function Subsegmental atelectasis in right mid-lung Normocytic anemia Ulcerative colitis Depression Schizophrenia Obesity, BMI 31.1 kg/m2 Date of Service: Aug 22, 2025 Billing Provider: FELY JOSHI MD Common Visit Codes: 54620-NOI/OBS DISCH DAY >30min MAXIMILIANO LIVE RESIDENT Aug 22, 2025 11:52
--- NOTE | 2025-08-22 13:37 | DVHPN2 ---
Progress Note - Dictate Date Seen: Aug 22, 2025 Medical Necessity Reason Pt with a Central, PICC or Fol: No Subjective Dialysis was completed today with no problem. The patient wants to go home vital signs Vital Sign Date Time Temp Pulse Resp B/P (MAP) Pulse Ox O2 Delivery O2 Flow Rate FiO2 08/22/25 13:00 98.2 94 18 110/79 (89) 96 98.2 08/22/25 07:30 Room Air* 0 21 Total Intake and Output 08/21/25 08/21/25 08/22/25 15:00 23:00 07:00 Intake Total 210 ml 450 ml Balance 210 ml 450 ml medications Current Medications Medications Dose Ordered Sig/Tiffany Route Start Time Stop Time Status Last Admin Dose Admin Acetaminophen 325 mg Q4HP PRN PO 08/20/25 09:45 Morphine Sulfate 2 mg Q4HPRN PRN IV 08/20/25 09:45 Quetiapine Fumarate 50 mg HS PO 08/20/25 22:00 08/21/25 21:15 50 MG Heparin Sodium (Porcine) 5,000 units Q12HR SC 08/20/25 22:00 08/21/25 21:14 5,000 UNITS Atorvastatin Calcium 10 mg HS PO 08/20/25 22:00 08/21/25 21:14 10 MG Multivit/Ca Carb/ B Cmplx/FA/Prenat 1 tab DAILY PO 08/21/25 10:00 08/22/25 11:09 1 TAB Sertraline HCl 50 mg DAILY PO 08/21/25 10:00 08/22/25 11:09 50 MG Cholecalciferol 3,000 unit DAILY PO 08/21/25 10:00 08/22/25 11:09 3,000 UNIT Calcium Carbonate 500 mg TIDWM PO 08/20/25 12:00 08/22/25 11:24 500 MG objective HEENT: No evidence of JVD, no oral ulcers. Pulmonary: Lungs are clear on auscultation bilaterally Cardiovascular S1-S2, no S3 or S4 Abdomen: Bowel sounds positive, soft no rebound tenderness Skin: No rash Neurological: Alert, oriented, no focal weakness Hemodialysis access: Left upper arm AV graft no bruit or thrill Right upper chest tunneled dialysis line in place laboratory and microbiology Laboratory Tests 08/22/25 05:09 Test 08/22/25 05:09 Range/Units Serum Glucose 118 H 74-106 mg/dL Assessment/Plan Assessment: 1. End-stage renal disease on hemodialysis TTS via left upper arm AV graft 2. Malfunction of the left upper arm AV graft due to occlusion Status post placement of right IJ tunneled catheter by Dr. Luis Manuel Tellez 3. Azotemia 4. Hypertension 5. Anemia of end-stage renal disease. Plan: Dialysis was completed today, patient will go to his regular dialysis tomorrow. Fistulogram will be scheduled as an outpatient Fluid restriction less than 1 L per day, low-potassium diet Continue antihypertensive meds Continue home medication Lauro as needed for goal hemoglobin 10 to 11 grams/deciliter Continue phosphate binder with each meal Okay to discharge from Nephrology perspective Thank you very much for allowing us to participate in the care of this patient please contact if you have any questions. Plan discussed with: Patient ZA VALDEZ MD Aug 22, 2025 13:37
[2025-08-22] MEDS ORDERED: EPOETIN ALFA-EPBX 4,000 UNIT/ML VIAL SC ONE (21:00)
== END 2025-08-22 17:15 | disposition home or self-care (01) | DRG 314 ==
LOC: ER 08:24 → OVERFLOW 09:41 → CENTRAL 17:27
PROVIDERS: ADMIT Student in an Organized Health Care Education/Training Program; ATTEND Emergency Medicine
PROC: 02HV33Z Insertion of Infusion Device into Superior Vena Cava, Percutaneous Approach (ICD-10-PCS; 2025-08-21)
PROC: B5181ZA Fluoroscopy of Superior Vena Cava using Low Osmolar Contrast, Guidance (ICD-10-PCS; 2025-08-21)
PROC: 0JH63XZ Insertion of Tunneled Vascular Access Device into Chest Subcutaneous Tissue and Fascia, Percutaneous Approach (ICD-10-PCS; principal; 2025-08-21 10:58)
PROC: 5A1D70Z Performance of Urinary Filtration, Intermittent, Less than 6 Hours Per Day (ICD-10-PCS; 2025-08-22)
DX: T82.590A Other mechanical complication of surgically created arteriovenous fistula, initial encounter (principal); N18.6 End stage renal disease; I12.0 Hypertensive chronic kidney disease with stage 5 chronic kidney disease or end stage renal disease; D63.1 Anemia in chronic kidney disease; Z99.2 Dependence on renal dialysis; F20.9 Schizophrenia, unspecified; F32.A Depression, unspecified; E66.9 Obesity, unspecified; K51.919 Ulcerative colitis, unspecified with unspecified complications; J98.11 Atelectasis; E78.5 Hyperlipidemia, unspecified; K21.9 Gastro-esophageal reflux disease without esophagitis; R62.59 Other lack of expected normal physiological development in childhood; Z87.440 Personal history of urinary (tract) infections; Z80.1 Family history of malignant neoplasm of trachea, bronchus and lung; Z80.3 Family history of malignant neoplasm of breast; Z68.31 Body mass index [BMI] 31.0-31.9, adult; Y92.89 Other specified places as the place of occurrence of the external cause
CPT/HCPCS: 36415; 71045; 76000; 80048; 80053; 80061; 80307; 81001; 82306; 82607; 83036; 83735; 84100; 84443; 85025; 85610; 85730; 87081; 90935; 93306; G0378; J1100; J2250; J2704; J3490